=== PATIENT | male | born 1960 | race Caucasian/White ===

== ENCOUNTER 2022-11-09 14:46 | Inpatient (IN) ==
--- NOTE | 2022-11-09 15:14 | ED Triage Note ---
Date of Service November 09, 2022 History of Present Illness This patient was briefly evaluated while in triage. An abbreviated physical exam was performed. This patient is a 62-year-old Male who presents to the ED for evaluation of hard time walking. He was admitted 10 days ago to [facility] for ETOH. Discharge 5 days ago, and no ETOH since that time. He is on new meds for HTN and for the ETOH cravings. Reports bilateral leg pain and dark urine. Physical Exam Limited Triage Exam: VITALS: Vitals are noted on the nurse's note and reviewed by myself. Vital signs stable. GENERAL: Well-developed, well-nourished, white male, who is in NAD. Pt is seated in wheelchair. HEART: Regular rate and rhythm without murmurs gallops or rubs. LUNGS: Clear to auscultation bilaterally without wheezes, rales or rhonchi. No retractions or accessory muscle use. Initial orders for labs and / or imaging were placed and patient was placed in the waiting area until a bed is available. Please see further documentation for the full ED course. MDM / Impression Impression Impression: Wernicke-Korsakoff syndrome
[2022-11-09] MEDS ORDERED: SODIUM CHLORIDE 0.9% 1000ML 1,000 ML IV SCH (15:15)
[2022-11-09 16:16] LABS: Basophils # (auto) 0.09 K/uL (0-0.2); Basophils % (auto) 1.5 %; Eosinophils # (auto) 0.12 K/uL (0-0.50); Hematocrit (blood only) 43.1 % (42.0-52.0); Hemoglobin 14.8 g/dl (14.0-18.0); Immature Granulocytes # (auto) 0.04 K/uL (0.01-0.20); Immature Granulocytes % (auto) 0.7 %; Lymphocytes # (auto) 1.26 K/uL (1.2-3.4); Lymphocytes % (auto) 20.5 %; Mean Corpuscular Hemoglobin 34.1 pg (25.0-34.0); Mean Corpuscular Hgb Conc 34.3 g/dL (32.0-36.0); Mean Corpuscular Volume 99.3 fL (80.0-100.0); Mean Platelet Volume 10.2 fL (9.4-12.4); Monocytes # (auto) 0.97 K/uL (0.11-0.59); Monocytes % (auto) 15.8 %; Neutrophils # (auto) 3.67 K/uL (1.40-6.50); Neutrophils % (auto) 59.5 %; Platelet Count 291 K/uL (130-400); Red Blood Count 4.34 M/uL (4.70-6.10); White Blood Count 6.15 K/ul (4.8-10.8)
[2022-11-09 16:30] LABS: Alanine Aminotransferase 23 U/L (7-52); Albumin Globulin Ratio 1.3 (0.9-2); Albumin Level 3.8 gm/dl (3.4-5.0); Alkaline Phosphatase 55 U/L (34-104); Anion Gap 6 (3-11); Aspartate Aminotransferase 25 U/L (13-39); BUN Creatinine Ratio 15.2 (10-20); Bilirubin,Total 0.5 mg/dl (0.2-1.0); Blood Urea Nitrogen 15 mg/dl (6-23); Calcium 9.2 mg/dl (8.6-10.3); Carbon Dioxide 25 mmol/L (21-32); Chloride 106 mmol/L (98-107); Creatine Kinase 43 U/L (30-223); Est GFR (African American) 94.9 ml/min; Est GFR (Non-African American) 81.9 ml/min; Globulin 2.9 gm/dl (2.5-4.0); Glucose 97 mg/dl (70-99(Fasting)); Lipase 53 U/L (11-82); Potassium 3.7 mmol/L (3.5-5.1); Sodium 137 mmol/L (136-145); Total Protein 6.7 gm/dl (6.0-8.3)
[2022-11-09 16:36] LABS: Troponin I High Sensitivity 4.3 pg/ml (0-20)
--- NOTE | 2022-11-09 16:36 | CT Scan Report ---
CT head/brain wo con CLINICAL HISTORY: 62 years-old Male with weakness. Acute weakness TECHNIQUE: Multiple axial CT images of the head were obtained without contrast. A dose lowering tech nique was utilized adhering to the principles of ALARA. CT DOSE: 703.85 mGy.cm COMPARISON: None. FINDINGS: No acute intracranial hemorrhage, midline shift, intracranial mass, hydrocephalus, territorial ischem ia or abnormal extra-axial collection. White matter hypodensities suggestive of chronic microvascular ischemic disease. Ill-defined hypodense focus in the left paramedian joo is favored to be artifactu al. The calvarium is intact. The paranasal sinuses, mastoid air cells, and middle ear cavities are clear . IMPRESSION: No acute intracranial abnormality. ACT 112: Negative or not required by law. The above report was generated using voice recognition software. It may contain grammatical, syntax o r spelling errors. Electronically signed by: Kd Pink M.D. 11/09/2022 4:35 PM
[2022-11-09 16:40] LABS: Partial Thromboplastin Ratio 0.8; Partial Thromboplastin Time 23.4 Seconds (21.0-31.0); Prothrombin Time 10.8 Seconds (9.0-12.0)
[2022-11-09 16:49] LABS: Lyme Ab IgG w/WB Rflx Negative (Negative); Lyme Ab IgM w/WB Rflx Negative (Negative)
--- NOTE | 2022-11-09 17:01 | Emergency Department Note ---
Impression & Plan Wernicke-Korsakoff syndrome ED Provider Note INFORMANT: Patient and patient's ED PROVIDER(S): Vishal Em DO CHIEF COMPLAINT: Short-term memory loss and difficulty ambulating PLAN: Disposition: Admission Outpatient prescription management: [none] Discussion with: I spoke with the hospitalist, who will see the patient for admission/observation and further evaluation and consultation. MEDICAL DECISION MAKING: This patient is a 62-year-old Male who presents to the ED for evaluation of hard time walking. He was admitted 10 days ago to [facility] for ETOH. Discharge 5 days ago, and no ETOH since that time. He is on new meds for HTN and for the ETOH cravings. Reports bilateral leg pain. The pain is primarily in the anterior thighs. He states is not that bad right now but it is bad at times. He sometimes has difficulty walking due to the pain in his legs, primarily his anterior thighs. The reports that he sometimes seems c onfused and does not remember things very well and forgets things quickly. The patient, according to the was drinking at least a sixpack per day since his dad about a year ago. He was also using " moonshine". He was admitted to the [facility] for 5 days. The patient does take trazodone at night for sleep. The states that he is sleeping about 20 hours/day. He has decreased appetite and oral intake. The patient does answer my questions appropriately. The showed me a video of patient trying to get into a chair. He is hunched over with his legs partially bent and seems to have difficulty ambulating. Taking very small steps. One of the episodes that the reported to me with regards to his memory loss, he asked where his keys are to his car. When she got the keys and gave them to him, he asked her why he was giving him the keys. The patient's work-up here today did not show any concerning abnormalities. CT scan of the brain was negative for acute disease. EKG shows a normal sinus rhythm with a heart rate of 77 and right bundle branch block. CBC did not show leukocytosis or anemia. Chemistry panel showed no electrolyte abnormalities or kidney dysfunction. Alcohol was negative. Lyme test was negative. A total CK was normal. TSH was normal. Lipase was negative for pancreatitis. Ammonia level was normal. The patient was treated empirically with some IV thiamine, IV folic acid and p.o. multivitamin. He was given some IV fluids. His symptoms are concerning for Warnicke Korsakoff syndrome. He also seems to have significant difficulty getting around and may need inpatient rehab. I did speak with the hospitalist about the patient who will see the patient for further evaluation and care for Triage Nursing notes reviewed. Vital Signs: reviewed Prior /Outside records reviewed: none Differential diagnosis: Warnicke Korsakoff syndrome, dehydration, electrolyte abnormality, anemia, CVA, other Diagnostics, as interpreted by me: 12 lead ECG: Normal sinus rhythm rate of 77. Right bundle branch block. No ST elevation. No PVCs. Normal QTc. Cardiac Monitoring ordered: Sinus rhythm in the 70s and 80s Medical decision rules: [none] Imaging studies: CT scan of the brain: No intracranial hemorrhage. Procedures: none. Critical care: none. HPI: See MDM above. PAST MEDICAL HISTORY: See Below PAST SURGICAL HISTORY: See Below SOCIAL HISTORY: See Below HOME MEDICATIONS:See Below ALLERGIES: See Below VITALS: See Below PHYSICAL EXAMINATION: See MDM for positive findings otherwise unremarkable. CONSTITUTIONAL/VITAL SIGNS: Reviewed GENERAL:done as appropriate INTEGUMENTARY: done as appropriate HEAD: done as appropriate EYES: done as appropriate RESPIRATORY: done as appropriate CARDIOVASCULAR:done as appropriate GI/ABDOMEN:done as appropriate EXTREMITIES: done as appropriate NEUROLOGICAL: done as appropriate PSYCHIATRIC:done as appropriate MUSCULOSKELETAL:done as appropriate TRIAGE NURSING DOCUMENTATION REVIEWED. Past Med/Surg History Social History Smoking Status: Never smoker Feels Safe at Home: Yes Results & Data (ED) Vital Signs Vital Signs - 24 hr 11/09/22 15:10 11/09/22 16:50 Temperature 36.9 C Temperature Source Temporal Artery Scan Pulse Rate 90 Respiratory Rate 20 Respiratory Effort / Characteristics Non-Labored Respiratory Depth Normal Blood Pressure 109/71 Blood Pressure Mean 83 Pulse Oximetry 98 Oxygen Delivery Method Room Air Room Air Sepsis Recent Fever Within 48 Hours No Sepsis New/Unexplained Change in Mental Status Yes Sepsis Action Taken by Nursing No Action Required Laboratory Data 11/09/22 15:44 11/09/22 15:44 Lab Results 11/09/22 11/09/22 11/09/22 Range/Units 15:44 15:44 15:44 WBC 6.15 (4.8-10.8) K/ul RBC 4.34 L (4.70-6.10) M/uL Hgb 14.8 (14.0-18.0) g/dl Hct 43.1 (42.0-52.0) % MCV 99.3 (80.0-100.0) fL MCH 34.1 H (25.0-34.0) pg MCHC 34.3 (32.0-36.0) g/dL RDW Std Deviation 44.0 (36.4-46.3) fL RDW Coeff of Hollie 12.0 (11.5-14.5) % Plt Count 291 (130-400) K/uL MPV 10.2 (9.4-12.4) fL Immature Gran % (Auto) 0.7 % Neut % (Auto) 59.5 % Lymph % (Auto) 20.5 % [place] % (Auto) 15.8 % Eos % (Auto) 2.0 % Baso % (Auto) 1.5 % Neut # (Auto) 3.67 (1.40-6.50) K/uL Lymph # (Auto) 1.26 (1.2-3.4) K/uL [place] # (Auto) 0.97 H (0.11-0.59) K/uL Eos # (Auto) 0.12 (0-0.50) K/uL Baso # (Auto) 0.09 (0-0.2) K/uL Immature Gran # (Auto) 0.04 (0.01-0.20) K/uL PT 10.8 (9.0-12.0) Seconds INR 1.0 (0.9-1.1) APTT 23.4 (21.0-31.0) Seconds PTT Ratio 0.8 Sodium 137 (136-145) mmol/L Potassium 3.7 (3.5-5.1) mmol/L Chloride 106 (98-107) mmol/L Carbon Dioxide 25 (21-32) mmol/L Anion Gap 6 (3-11) BUN 15 (6-23) mg/dl Creatinine 0.99 (0.6-1.4) mg/dl Est Cr Clr Drug Dosing Not Reportable Est GFR ( Amer) 94.9 ml/min Est GFR (Non-Af Amer) 81.9 ml/min BUN/Creatinine Ratio 15.2 (10-20) Glucose 97 (70-99(Fasting)) mg/dl Calcium 9.2 (8.6-10.3) mg/dl Magnesium 2.0 (1.7-2.4) mg/dl Total Bilirubin 0.5 (0.2-1.0) mg/dl AST 25 (13-39) U/L ALT 23 (7-52) U/L Alkaline Phosphatase 55 (34-104) U/L Ammonia (18-72) umol/L Total Creatine Kinase 43 (30-223) U/L Troponin I High Sens 4.3 (0-20) pg/ml Total Protein 6.7 (6.0-8.3) gm/dl Albumin 3.8 (3.4-5.0) gm/dl Globulin 2.9 (2.5-4.0) gm/dl Albumin/Globulin Ratio 1.3 (0.9-2) Lipase 53 (11-82) U/L TSH (0.300-4.500) uIu/ml Ethyl Alcohol mg/dL (<10.0) mg/dl Lyme Disease IgG Ab (Negative) Lyme Disease IgM Ab (Negative) 11/09/22 11/09/22 11/09/22 Range/Units 15:44 15:44 15:44 WBC (4.8-10.8) K/ul RBC (4.70-6.10) M/uL Hgb (14.0-18.0) g/dl Hct (42.0-52.0) % MCV (80.0-100.0) fL MCH (25.0-34.0) pg MCHC (32.0-36.0) g/dL RDW Std Deviation (36.4-46.3) fL RDW Coeff of Hollie (11.5-14.5) % Plt Count (130-400) K/uL MPV (9.4-12.4) fL Immature Gran % (Auto) % Neut % (Auto) % Lymph % (Auto) % [place] % (Auto) % Eos % (Auto) % Baso % (Auto) % Neut # (Auto) (1.40-6.50) K/uL Lymph # (Auto) (1.2-3.4) K/uL [place] # (Auto) (0.11-0.59) K/uL Eos # (Auto) (0-0.50) K/uL Baso # (Auto) (0-0.2) K/uL Immature Gran # (Auto) (0.01-0.20) K/uL PT (9.0-12.0) Seconds INR (0.9-1.1) APTT (21.0-31.0) Seconds PTT Ratio Sodium (136-145) mmol/L Potassium (3.5-5.1) mmol/L Chloride (98-107) mmol/L Carbon Dioxide (21-32) mmol/L Anion Gap (3-11) BUN (6-23) mg/dl Creatinine (0.6-1.4) mg/dl Est Cr Clr Drug Dosing Est GFR ( Amer) ml/min Est GFR (Non-Af Amer) ml/min BUN/Creatinine Ratio (10-20) Glucose (70-99(Fasting)) mg/dl Calcium (8.6-10.3) mg/dl Magnesium (1.7-2.4) mg/dl Total Bilirubin (0.2-1.0) mg/dl AST (13-39) U/L ALT (7-52) U/L Alkaline Phosphatase (34-104) U/L Ammonia 31.0 (18-72) umol/L Total Creatine Kinase (30-223) U/L Troponin I High Sens (0-20) pg/ml Total Protein (6.0-8.3) gm/dl Albumin (3.4-5.0) gm/dl Globulin (2.5-4.0) gm/dl Albumin/Globulin Ratio (0.9-2) Lipase (11-82) U/L TSH 0.746 (0.300-4.500) uIu/ml Ethyl Alcohol mg/dL < 10.0 (<10.0) mg/dl Lyme Disease IgG Ab (Negative) Lyme Disease IgM Ab (Negative) 11/09/22 Range/Units 15:44 WBC (4.8-10.8) K/ul RBC (4.70-6.10) M/uL Hgb (14.0-18.0) g/dl Hct (42.0-52.0) % MCV (80.0-100.0) fL MCH (25.0-34.0) pg MCHC (32.0-36.0) g/dL RDW Std Deviation (36.4-46.3) fL RDW Coeff of Hollie (11.5-14.5) % Plt Count (130-400) K/uL MPV (9.4-12.4) fL Immature Gran % (Auto) % Neut % (Auto) % Lymph % (Auto) % [place] % (Auto) % Eos % (Auto) % Baso % (Auto) % Neut # (Auto) (1.40-6.50) K/uL Lymph # (Auto) (1.2-3.4) K/uL [place] # (Auto) (0.11-0.59) K/uL Eos # (Auto) (0-0.50) K/uL Baso # (Auto) (0-0.2) K/uL Immature Gran # (Auto) (0.01-0.20) K/uL PT (9.0-12.0) Seconds INR (0.9-1.1) APTT (21.0-31.0) Seconds PTT Ratio Sodium (136-145) mmol/L Potassium (3.5-5.1) mmol/L Chloride (98-107) mmol/L Carbon Dioxide (21-32) mmol/L Anion Gap (3-11) BUN (6-23) mg/dl Creatinine (0.6-1.4) mg/dl Est Cr Clr Drug Dosing Est GFR ( Amer) ml/min Est GFR (Non-Af Amer) ml/min BUN/Creatinine Ratio (10-20) Glucose (70-99(Fasting)) mg/dl Calcium (8.6-10.3) mg/dl Magnesium (1.7-2.4) mg/dl Total Bilirubin (0.2-1.0) mg/dl AST (13-39) U/L ALT (7-52) U/L Alkaline Phosphatase (34-104) U/L Ammonia (18-72) umol/L Total Creatine Kinase (30-223) U/L Troponin I High Sens (0-20) pg/ml Total Protein (6.0-8.3) gm/dl Albumin (3.4-5.0) gm/dl Globulin (2.5-4.0) gm/dl Albumin/Globulin Ratio (0.9-2) Lipase (11-82) U/L TSH (0.300-4.500) uIu/ml Ethyl Alcohol mg/dL (<10.0) mg/dl Lyme Disease IgG Ab Negative (Negative) Lyme Disease IgM Ab Negative (Negative) Imaging Data Radiologist's Impression: Head CT 11/09/22 15:14 CT head/brain wo con CLINICAL HISTORY: 62 years-old Male with weakness. Acute weakness TECHNIQUE: Multiple axial CT images of the head were obtained without contrast. A dose lowering technique was utilized adhering to the principles of ALARA. CT DOSE: 703.85 mGy.cm COMPARISON: None. FINDINGS: No acute intracranial hemorrhage, midline shift, intracranial mass, hydrocephalus, territorial ischemia or abnormal extra-axial collection. White matter hypodensities suggestive of chronic microvascular ischemic disease. Ill- defined hypodense focus in the left paramedian joo is favored to be artifactual. The calvarium is intact. The paranasal sinuses, mastoid air cells, and middle ear cavities are clear. IMPRESSION: No acute intracranial abnormality. ACT 112: Negative or not required by law. The above report was generated using voice recognition software. It may contain grammatical, syntax or spelling errors. Electronically signed by: Kd Pink M.D. 11/09/2022 4:35 PM Discharge Plan Visit Data Chief Complaint: Leg Injury/Pain Stated Complaint: GETTING LEGS CHECKED OUT ED Provider: Vishal Em Discharge Problem: Wernicke-Korsakoff syndrome Patient Disposition: Admitted As Inpatient Forms Stand Alone Forms: [facility] Referrals Referrals: PCP,NO [Primary Care Provider] -
--- NOTE | 2022-11-09 17:13 | Electrocardiogram Report ---
Test Reason : Blood Pressure : / mmHG Vent. Rate : 077 BPM Atrial Rate : 077 BPM P-R Int : 160 ms QRS Dur : 122 ms QT Int : 410 ms P-R-T Axes : 024 061 004 degrees QTc Int : 463 ms Normal sinus rhythm Right bundle branch block Abnormal ECG No previous ECGs available Confirmed by Toby Calhoun ([id number]) on 11/09/2022 5:13:02 PM Referred By: Confirmed By:Jaison Calhoun
[2022-11-09] MEDS ORDERED: FOLIC ACID 1 MG in SYRINGE 9.8 ML IV STA (17:31)
[2022-11-09] MEDS ORDERED: THIAMINE HCL 500 MG in SYRINGE 9 ML IV STA (17:31)
[2022-11-09] MEDS ORDERED: THIAMINE HCL 500 MG in SODIUM CHLORIDE 0.9% 50 ML IV ONE (17:45)
--- NOTE | 2022-11-09 18:34 | Ultrasound Report ---
US venous doppler LE BI CLINICAL HISTORY: weak, leg pain, recent hospitalization TECHNIQUE: Bilateral lower extremity real-time compression venous ultrasound with Color Doppler imagi ng. Utilizing real-time ultrasonic imaging multiple real time high-resolution ultrasonic images with compression and noncompression maneuvers of the deep venous system in addition to color doppler imagi ng were performed from the common femoral vein through the proximal calf veins. COMPARISON: None available at the time of this dictation. FINDINGS/IMPRESSION: Currently there is normal compressibility of the deep venous system from the common femoral vein thro ugh the proximal calf veins. No superficial venous thrombosis is identified. ACT 112: Negative or not required by law. Electronically signed by: Bandar Armstrong M.D. 11/09/2022 6:33 PM
--- NOTE | 2022-11-09 18:40 | History & Physical Report ---
Date of Service November 09, 2022 Assessment & Plan (1) Ataxia: (2) Alcohol use disorder in remission: (3) Seizure disorder: (4) Anxiety and depression: (5) HTN (hypertension): Plan This is a 62-year-old male with PMH of hypertension, remote seizure disorder, significant history of alcohol abuse, anxiety and depression, GERD and other medical problems listed below who presents with acute ambulatory dysfunction and impaired cognition concerning for vitamin deficiency and related syndromes including Wernicke's encephalopathy. Ataxia Impaired cognition H/o alcohol abuse Recent admission to [facility] 10/30-11/03 for etoh withdrawal, notable ambulatory dysfunct ion and slowed cognition since discharge home Discharged home on Librium taper and naltrexone Last drink 10/29, today's etoh level normal. No s/sx of etoh withdrawal on admission today, so we will hold Librium and Naltrexone at this time as it may be contributing to slowed cognition Head CT without acute intracranial abnormality Concern for significant vitamin deficiency in setting of minimal appetite, h/o alcoholism and Topamax use Thiamine, B12, folate, MMA levels pending Received IV folate, thiamine and B12 in the ED Continue Thiamine 500mg Q8H for concern for Wernicke's encephalopathy Continue B12, folate daily Brain MRI w/wo contrast pending, carotid dopplers Neurology consulted Seizure disorder Remote h/o seizure 16 years ago. Continue Topamax Anxiety and depression H/o grief from recent losses over past year, evaluated by psych at [facility] with recommendation for continued outpatient therapy. Continue SSRI Reduce Trazodone to 50mg HS HTN Continue amlodipine DVT Ppx: SQ lovenox Code status: FULL PCP: Bhupendra Dispo: Admitted to PCU Patient seen in collaboration with Dr. Whitten. Please see addendum. I spent a total of 75 minutes coordinating, documenting, and providing care for this patient excluding time spent in the performance of separately billed services. History of Present Illness Chief Complaint: Acute memory change history of alcohol abuse Primary Care Provider: NO PCP This is a 62-year-old male with PMH of hypertension, remote seizure disorder, significant history of alcohol abuse, anxiety and depression, GERD and other medical problems listed below who presents with acute memory changes and ambulatory dysfunction. Patient was recently admitted at [facility] from 10/30 - 11/03 for alcohol detox brought in by his . Also underwent stroke evaluation which was negative due to weakness during admission. Patient was discharged on Librium taper and naltrexone 50 mg daily as recommended from psychiatry consult during admission for depression related to alcohol use. Last drink was October 29. Previously to that drank 5-6 beers/night for years. Since discharge home, patient has been sleeping more, up to 20 hours a day and has seem increasingly more confused and unsteady. provided videos of patient walking 6 days ago with slight shuffling but steady and then showed video from barron mclain today of him scooting on the floor due to weakness and inability to fully stand as well as a slowed, unsteady gait, holding onto furniture. Examples of discoordination and confusion provided by include having difficulty operating TV remote and had it upside down and searching for his wallet and did not know it was in the other hand. Reportedly always has been a poor eater and recently started him on Gatorade and Ensure but has been on Topamax 75mg BID for years due to history of seizure 16 years ago. Urinating less frequently and reportedly dark, foul smelling. 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 Reportedly A&Ox3 without any cognitive slowing previously. Last drink was October 29. No fever, chills, lightheadedness, CP, SOB, N/V, abdominal pain, dysuria, diarrhea or constipation. Allergies Allergy/AdvReac Type Severity Reaction Status Date / Time bee venom protein (honey bee) Allergy Severe Anaphylaxis--CARRIES Verified 11/09/22 18:26 AN EPIPEN Home Medications Medication Instructions Recorded Confirmed Type amlodipine 10 mg tablet 10 mg PO QAM 11/09/22 11/09/22 History atorvastatin 20 mg tablet 20 mg PO HS 11/09/22 11/09/22 History chlordiazepoxide HCl 25 mg capsule 25 mg PO TID 11/09/22 11/09/22 History epinephrine 0.3 mg/0.3 mL 0.3 mg IM DIRECTED PRN Allergic 11/09/22 11/09/22 History injection, auto-injector (EpiPen) Reaction escitalopram oxalate 20 mg tablet 20 mg PO QAM 11/09/22 11/09/22 History multivitamin 1 tab PO DAILY 11/09/22 11/09/22 History naltrexone 50 mg tablet 50 mg PO QAM 11/09/22 11/09/22 History omeprazole 20 mg capsule,delayed 20 mg PO DAILYBB 11/09/22 11/09/22 History release tamsulosin 0.4 mg capsule 0.4 mg PO QAM 11/09/22 11/09/22 History topiramate 25 mg tablet 25 mg PO BID 11/09/22 11/09/22 History topiramate 50 mg tablet 50 mg PO BID 11/09/22 11/09/22 History trazodone 100 mg tablet 100 mg PO HS 11/09/22 11/09/22 History Past Med/Surg History Medical History Alcohol use disorder in remission Anxiety and depression GERD (gastroesophageal reflux disease) HTN (hypertension) Seizure disorder Surgical History History of appendectomy Family History Other Lung cancer Social History Smoking Status: Never smoker Hx Alcohol Use: Yes Alcohol type: beer Alcohol type Comment: last drink 5/4, previously endorsed 5-6 beers per night Feels Safe at Home: Yes Review of Systems Review of Systems: At least ten systems reviewed and negative except as noted in the HPI. Physical Exam Physical Exam: Please see Dr. Whitten's addendum for physical exam. Results & Data Results & Data Vital Signs (Past 12 Hours) Vital Signs Temp Pulse Pulse Resp BP BP Pulse Ox 11/09/22 18:19 62 20 139/77 96 11/09/22 16:50 11/09/22 15:10 36.9 C 90 20 109/71 98 O2 Del Method 11/09/22 18:19 Room Air 11/09/22 16:50 Room Air 11/09/22 15:10 Room Air Laboratory Results Short CBC 11/09/22 Range/Units 15:44 WBC 6.15 (4.8-10.8) K/ul Hgb 14.8 (14.0-18.0) g/dl Hct 43.1 (42.0-52.0) % Plt Count 291 (130-400) K/uL BMP 11/09/22 15:44 Sodium 137 Potassium 3.7 Chloride 106 Carbon Dioxide 25 BUN 15 Creatinine 0.99 Glucose 97 Calcium 9.2 Cardiac Enzymes 11/09/22 Range/Units 15:44 Total Creatine Kinase 43 (30-223) U/L Liver Function 11/09/22 Range/Units 15:44 Total Bilirubin 0.5 (0.2-1.0) mg/dl AST 25 (13-39) U/L ALT 23 (7-52) U/L Alkaline Phosphatase 55 (34-104) U/L Albumin 3.8 (3.4-5.0) gm/dl Diagnostic Findings Head CT 11/09/22 15:14 CT head/brain wo con CLINICAL HISTORY: 62 years-old Male with weakness. Acute weakness TECHNIQUE: Multiple axial CT images of the head were obtained without contrast. A dose lowering technique was utilized adhering to the principles of ALARA. CT DOSE: 703.85 mGy.cm COMPARISON: None. FINDINGS: No acute intracranial hemorrhage, midline shift, intracranial mass, hydrocephalus, territorial ischemia or abnormal extra-axial collection. White matter hypodensities suggestive of chronic microvascular ischemic disease. Ill- defined hypodense focus in the left paramedian joo is favored to be artifactual. The calvarium is intact. The paranasal sinuses, mastoid air cells, and middle ear cavities are clear. IMPRESSION: No acute intracranial abnormality. ACT 112: Negative or not required by law. The above report was generated using voice recognition software. It may contain grammatical, syntax or spelling errors. Electronically signed by: Kd Pink M.D. 11/09/2022 4:35 PM Venous Doppler Study 11/09/22 15:14 US venous doppler LE BI CLINICAL HISTORY: weak, leg pain, recent hospitalization TECHNIQUE: Bilateral lower extremity real-time compression venous ultrasound with Color Doppler imaging. Utilizing real-time ultrasonic imaging multiple real time high-resolution ultrasonic images with compression and noncompression maneuvers of the deep venous system in addition to color doppler imaging were performed from the common femoral vein through the proximal calf veins. COMPARISON: None available at the time of this dictation. FINDINGS/IMPRESSION: Currently there is normal compressibility of the deep venous system from the common femoral vein through the proximal calf veins. No superficial venous thrombosis is identified. ACT 112: Negative or not required by law. Electronically signed by: Bandar Armstrong M.D. 11/09/2022 6:33 PM ECG Additional Comments: EKG reviewed- NSR at 71 bpm, RBBB Code Status & VTE Plan VTE Prophylaxis Plan VTE Prophylaxis will be ordered: Yes Supervising Physician Co-Signing Physician Notes I have seen and examined the patient and have discussed the case with the provider above. I agree with the assessment and plan as stated with the following exceptions. 62-year-old alcoholic man presented with worsening weakness and ambulation. Intermittent confusion present per . Patient was recently admitted to [facility] for alcohol withdrawal. He had presented to the ER with sudden onset tremors and diaphoresis with hypertension and last drink being 2 days prior to arrival. 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 Since he was discharged in the hospital he has not regained his normal brisk gait and has become steadily more stooped and weak and more confused. Baseline mental status is normal 2 weeks ago. Aside from drinking a sixpack a day his nutritional status is poor per family. In addition he is on Topamax 75 mg p.o. twice daily for a history of seizures 16 years ago. He also takes trazodone 100 mg p.o. nightly in the evening. He has reportedly been dealing with depression and is on Lexapro 20 mg every morning. Since discharge from the hospital new medications include naltrexone 50 mg daily and chlordiazepoxide 25 mg twice daily. Physical exam he is alert and oriented but slow to respond. He exhibits no signs of withdrawal including no tremors or anxiousness. Tongue has a geographic appearance to it with patches of white and smooth red with possible glossitis. No evidence of dermatitis or angular cheilitis is noted. His skin is warm and dry with no evidence of diaphoresis. Extraocular muscles intact throughout with no evidence of nystagmus. Sensation is intact throughout and strength is 5 out of 5 throughout all limbs. I can easily take his arms and legs through a passive range of motion without any evidence of rigidity or obstacle. DTRs in the knees bilaterally are 3/4. Sensation intact. [id number] is intact. He answers questions correctly. Cardiac exam reveals S1-S2 heard with no murmurs gallops or rubs. There is a regular rate and rhythm auscultated. Pulmonary auscultation is clear throughout. Abdomen is soft nontender nondistended. Work-up includes a CBC that is normal with an MCV of 99.3. BMP is normal. Lipase is normal, TSH normal, alcohol level is negative, Lyme screen is negative, COVID is negative. Urinalysis and urine tox are pending. Head CT reveals no acute intracranial abnormality. EKG reveals normal sinus rhythm with a right bundle branch block and no ST changes consistent with ischemia. MRI is pending 1. Ataxia 2/2 poss vitamin deficiency (B12) 2. Alcoholism 3. Malnutrition 4. Depression 5. Seizure d/o Overall this is a 62 yo alcoholic presenting with acute neurologic changes consistent with vitamin deficiency, specifically B12 or thiamine. Exam does not support ongoing alcohol withdrawal and additional benzo use to treat this will be stopped as this may be adding to the decline. Similarly, will hold on naltrexone since he is in the hospital and will be abstinent from alcohol to exclude any pharmacologic side effect from this new medication. Will decrease trazodone by 50% and cont Lexapro and Topamax for h/o seizure. His showed videos and gave examples of the patient demonstrating lack of proprioception. Will empirically replace both and folate while awaiting levels to return. MRI pending to rule out bleed or tumor. Doubt infection, but also awaiting UA results. Consider additional intoxication such as accidental poisoning or other occupational exposure. For now, will start with tox screen which is pending. Neuro consult. DO Fish
[2022-11-09] MEDS ORDERED: CYANOCOBALAMIN 1000 MCG/ML VIAL IM SCH (19:45)
--- NOTE | 2022-11-09 19:56 | Communication Note ---
Date of Service: November 09, 2022 HOSPITALIST ATTENDING ADDENDUM: 62-year-old alcoholic man presented with worsening weakness and ambulation. Intermittent confusion present per . Patient was recently admitted to [facility] for alcohol withdrawal. He had presented to the ER with sudden onset tremors and diaphoresis with hypertension and last drink being 2 days prior to arrival. His last drink was reportedly 10/29/2022 and he typically drinks a sixpack a day fdc. Since he was discharged in the hospital he has not regained his normal brisk gait and has become steadily more stooped and weak and more confused. Baseline mental status is normal 2 weeks ago. Aside from drinking a sixpack a day his nutritional status is poor per family. In addition he is on Topamax 75 mg p.o. twice daily for a history of seizures 16 years ago. He also takes trazodone 100 mg p.o. nightly in the evening. He has reportedly been dealing with depression and is on Lexapro 20 mg every morning. Since discharge from the hospital new medications include naltrexone 50 mg daily and chlordiazepoxide 25 mg twice daily. Physical exam he is alert and oriented but slow to respond. He exhibits no signs of withdrawal including no tremors or anxiousness. Tongue has a geographic appearance to it with patches of white and smooth red with possible glossitis. No evidence of dermatitis or angular cheilitis is noted. His skin is warm and dry with no evidence of diaphoresis. Extraocular muscles intact throughout with no evidence of nystagmus. Sensation is intact throughout and strength is 5 out of 5 throughout all limbs. I can easily take his arms and legs through a passive range of motion without any evidence of rigidity or obstacle. DTRs in the knees bilaterally are 3/4. Sensation intact. [id number] is intact. He answers questions correctly. Cardiac exam reveals S1-S2 heard with no murmurs gallops or rubs. There is a regular rate and rhythm auscultated. Pulmonary auscultation is clear throughout. Abdomen is soft nontender nondistended. Work-up includes a CBC that is normal with an MCV of 99.3. BMP is normal. Lipase is normal, TSH normal, alcohol level is negative, Lyme screen is negative, COVID is negative. Urinalysis and urine tox are pending. Head CT reveals no acute intracranial abnormality. EKG reveals normal sinus rhythm with a right bundle branch block and no ST changes consistent with ischemia. MRI is pending 1. Ataxia 2/2 poss vitamin deficiency (B12) 2. Alcoholism 3. Malnutrition 4. Depression 5. Seizure d/o Overall this is a 62 yo alcoholic presenting with acute neurologic changes consistent with vitamin deficiency, specifically B12 or thiamine. Exam does not support ongoing alcohol withdrawal and additional benzo use to treat this will be stopped as this may be adding to the decline. Similarly, will hold on naltrexone since he is in the hospital and will be abstinent from alcohol to exclude any pharmacologic side effect from this new medication. Will decrease trazodone by 50% and cont Lexapro and Topamax for h/o seizure. His showed videos and gave examples of the patient demonstrating lack of proprioception. Will empirically replace both and folate while awaiting levels to return. MRI pending to rule out bleed or tumor. Doubt infection, but also awaiting UA results. Consider additional intoxication such as accidental poisoning or other occupational exposure. For now, will start with tox screen which is pending. Neuro consult. DO Fish
[2022-11-09] MEDS ORDERED: GADOBUTROL 65ML VIAL IV ONE (21:26)
--- NOTE | 2022-11-09 21:58 | Magnetic Resonance Report ---
Exam(s): MRI HEAD W/WO Contrast IV Amt: 8.3 cc gadavist EXAM: MR Head Without and With Intravenous Contrast CLINICAL HISTORY: Reason for exam: acute ataxia, confusion, h/o alcoholism. TECHNIQUE: Magnetic resonance images of the head/brain without and with intravenous contrast in multiple planes. CONTRAST: Patient received 8.3 cc gadavist of IV contrast COMPARISON: No relevant prior studies available. FINDINGS: No acute territorial infarct. No acute intracranial hemorrhage. No midline shift or mass effect. The territorial sheldon-white matter differentiation is maintained throughout. Cerebral volume loss, advanced for the patient's age, which may be secondary to the patient's history of alcoholism. Periventricular and subcortical white matter T2 signal intensity, consistent with chronic microangiopathy. The visualized orbits appear grossly unremarkable. The calvarium is intact. The visualized paranasal sinuses and mastoid air cells are grossly clear. IMPRESSION: No acute territorial infarct. No acute intracranial hemorrhage. No midline shift or mass effect. Cerebral volume loss, advanced for the patient's age, which may be secondary to the patient's history of alcoholism. Electronically signed by: Ian Lucas MD 11/09/22 21:57 PM
[2022-11-09] MEDS ORDERED: ONDANSETRON INJ 2 MG/ML 2 ML VIAL IV PRN (21:59)
[2022-11-09] MEDS ORDERED: POLYETHYLENE (MIRALAX) 17 GM PACK PO PRN (21:59)
[2022-11-09] MEDS ORDERED: ACETAMINOPHEN 325 MG TAB PO PRN (21:59)
[2022-11-09] MEDS: Patient's HEIGHT &/or WEIGHT Needed SCH ×2 (22:27→23:45)
--- NOTE | 2022-11-09 23:42 | Ultrasound Report ---
Exam(s): US CAROTID EXAM: US Duplex Bilateral Extracranial Arteries CLINICAL HISTORY: Reason for exam: confusion. TECHNIQUE: Real-time duplex ultrasound scan of the extracranial arteries integrating B-mode two-dimensional vascular structure, Doppler spectral analysis and color flow Doppler imaging. COMPARISON: None. FINDINGS: Right common carotid artery: Unremarkable. No occlusion or significant stenosis on color flow and spectral Doppler imaging. Right internal carotid artery: Unremarkable. No occlusion or significant stenosis on color flow and spectral Doppler imaging. Right external carotid artery: Unremarkable. No occlusion or significant stenosis on color flow and spectral Doppler imaging. Right vertebral artery: Unremarkable. Antegrade flow. Right ICA/CCA ratio: Unremarkable. Within normal limits. Left common carotid artery: Unremarkable. No occlusion or significant stenosis on color flow and spectral Doppler imaging. Left internal carotid artery: Unremarkable. No occlusion or significant stenosis on color flow and spectral Doppler imaging. Left external carotid artery: Unremarkable. No occlusion or significant stenosis on color flow and spectral Doppler imaging. Left vertebral artery: Unremarkable. Antegrade flow. Left ICA/CCA ratio: Unremarkable. Within normal limits. Lymph nodes: Unremarkable. No lymphadenopathy. CAROTID STENOSIS REFERENCE USING SRU CRITERIA: Mild - <50% stenosis. ICA PSV is less than 125 cm/second and plaque or intimal thickening is visible. Moderate - 50-69% stenosis. ICA PSV is 125 to 230 cm/second and plaque is visible. Severe - 70-94% stenosis. ICA PSV is more than 230 cm/second and visible plaque with lumen narrowing is seen. Near occlusion - 95-99% stenosis. ICA PSV is variable and significant plaque with luminal narrowing is seen. Occluded - 100% stenosis. No flow identified. IMPRESSION: No hemodynamically significant stenosis of the carotid arteries. Electronically signed by: Simon Hankins MD 11/09/22 23:40 PM
[2022-11-09] MEDS: TOPIRAMATE 25 MG TAB PO SCH (23:48)
[2022-11-09] MEDS: TOPIRAMATE 50 MG TAB PO SCH (23:48)
[2022-11-09] MEDS: ENOXAPARIN INJ 40 MG/0.4 ML SYR SQ SCH (23:48)
[2022-11-09] MEDS: traZODone HCL 50 MG TAB PO SCH (23:49)
[2022-11-09] MEDS: MULTIVITAMIN TAB PO SCH (23:49)
[2022-11-09] MEDS: ATORVASTATIN 20 MG TAB PO SCH (23:49)
[2022-11-10] MEDS: THIAMINE HCL 500 MG in SODIUM CHLORIDE 0.9% 50 ML IV SCH ×3 (02:52→20:03)
[2022-11-10] MEDS: PANTOprazole 40 MG TAB PO SCH (05:33)
[2022-11-10 06:04] LABS: Hematocrit (blood only) 39.2 % (42.0-52.0); Hemoglobin 13.4 g/dl (14.0-18.0); Mean Corpuscular Hemoglobin 34.5 pg (25.0-34.0); Mean Corpuscular Hgb Conc 34.2 g/dL (32.0-36.0); Mean Platelet Volume 9.8 fL (9.4-12.4); Platelet Count 274 K/uL (130-400); RDW Standard Deviation 45.1 fL (36.4-46.3); Red Blood Count 3.88 M/uL (4.70-6.10); White Blood Count 5.23 K/ul (4.8-10.8)
[2022-11-10 06:14] LABS: BUN Creatinine Ratio 14.9 (10-20); Calcium 8.5 mg/dl (8.6-10.3); Creatinine Clr Calc Pharmacy 86.3 ml/min; Est GFR (Non-African American) 93.2 ml/min; Potassium 3.4 mmol/L (3.5-5.1)
[2022-11-10 06:35] LABS: Appearance Urine Clear (Clear); Bacteria Urine Automated Negative (Negative); Blood Urine Negative (Negative); Color Urine Dark Yellow; Glucose Urine UA Negative (Negative); Ketones Urine 1+ (Negative); Leukocyte Esterase Urine Negative (Negative); Nitrite Urine Negative (Negative); Protein Urine Trace (Negative); RBC Urine Automated 0-4 /hpf (0-4); Specific Gravity Urine 1.035 (1.000-1.030); Urobilinogen Urine Negative (Negative)
[2022-11-10 06:49] LABS: Bilirubin Urine 1+ (Negative)
[2022-11-10 07:28] LABS: Amphetamines+Metham, Urine Neg (Neg); Barbiturates, Urine Neg (Neg); Benzodiazepine, Urine Pos (Neg); Cocaine, Urine Neg (Neg); MDMA (Ecstacy), Urine Pos (Neg); Methadone, Urine Neg (Neg); Opiate, Urine Neg (Neg); Phencyclidine, Urine Neg (Neg)
[2022-11-10] MEDS: TAMSULOSIN HCL 0.4 MG CAP PO SCH (08:20)
[2022-11-10] MEDS: TOPIRAMATE 25 MG TAB PO SCH ×2 (08:20→20:05)
[2022-11-10] MEDS: FOLIC ACID 1 MG in SYRINGE 9.8 ML IV SCH (08:20)
[2022-11-10] MEDS: ESCITALOPRAM OXALATE 20 MG TAB PO SCH (08:20)
[2022-11-10] MEDS: amLODIPine BESYLATE 5 MG TAB PO SCH (08:21)
[2022-11-10] MEDS: TOPIRAMATE 50 MG TAB PO SCH ×2 (08:21→20:06)
--- NOTE | 2022-11-10 08:34 | Neurology Consultation ---
Date of Consultation November 10, 2022 Assessment & Plan (1) Alcohol use disorder in remission: (2) Wernicke-Korsakoff syndrome: (3) Ambulatory dysfunction: (4) Anxiety and depression: (5) Seizure disorder: Plan This patient has a history of heavy alcohol use for many years although he was markedly increased over the last 12 months. He was recently admitted and treated for alcohol and withdrawal. he was discharged on naltrexone and tapering Librium. Currently on examination he has Parkinson's features with rigidity, bradykinesia, and abnormal gait. He does not have resting tremor. He does have mild action tremor bilaterally and he does not have any ataxia of limbs or gait. Despite his feelings of weakness he does not have any focal weakness in his limbs and there are no upper motor neuron signs, meningeal signs, or obvious encephalopathy. He is slow of thought and seems to have some periods of confusion or memory issues by history. MRI of the brain showed no acute stroke but did show generalized atrophy that seemed out of proportion for his relatively young age. There was mild old small vessel ischemic disease as well and he does have a history of hypertension and dyslipidemia. Naltrexone can cause increased fatigue and hypersomnolence with anxiety, a rthralgias, and increased depression. It does not cause parkinsonism as far as I am aware. Patient has significant anxiety and depression and he may be experiencing depression was severe psychomotor symptoms. He has a remote history of 2 seizures 1 night and has been on topiramate ever since. Topiramate can be associated with decrease cognitive function the his dose is relatively low. Overall, therefore, I believe most of what we see is due to chronic alcohol issues affecting the brain as well as probable early Wernicke-Korsakoff syndrome from B vitamin deficiency, depression, and medication side effect. Recommendations: 1. ZERO alcohol from here on. 2. Agree with discontinuing now tracks own. 3. Agree with cutting trazodone to 50 mg a day. 4. Consider 81 mg aspirin daily to prevent small vessel ischemic disease. 5. decrease topiramate 50 mg twice a day. This should be adequate for mild seizure control 6. Continue the vitamins 7. Increase activity and obtain physical, occupational, and speech therapy consult. 8. I will following consider other neurologic testing or treatment recommendations depending on his clinical course. Overall, I spent a total of 100 minutes with this case including review of records, review of MRI and CT films, direct evaluation the patient at bedside, reports generation, and discussion the case with the patient, RN, and as well as Dr. Varghese, including differential diagnosis and treatment options. History of Present Illness Reason for Consultation: Patient is a 62-year-old, who I was asked to see the request of Dr. Whitten, neurologic consultation regarding confusion and other issues. patient's as much to the history (I spoke to her via telephone). Requesting Physician: Dr. Whitten Attending Physician: Chepe Varghese MD History of Present Illness This patient has a history of chronic, frequent alcohol use for years although it has been worse over the last year (increased frequency and quanity) after the of his father. In addition, He had two seizures 1 night about 16 years ago. He tells me that no one found any cause for his seizures and he has been on topiramate ever sinc e. He was told he could go off of it but he was too afraid to go off in case he might have another seizure. He never had seizures before or since 1 evening. Apparently he was walking quite well with no slowness or stiffness. He ended up going to [facility] about 10 days ago or so because of alcohol abuse. He was discharged about 5 days ago on tapering course of lithium and naltrexon e. According to the patient (and verified by his ) he has been very sleepy since he left the hospital. He says his walking is very slow and shuffling and he feels weak in the legs. He has had chronic knee pain for many years however. The patient himself denies any pain in the legs but they are weak proximally and similar. There is no numbness in the legs. Occasionally he will have urgency and some incontinence but this is not all the time. He denies symptoms in his low back, cervical spine, or upper extremities. He has no headaches or vision problems. Because of leg weakness and inability to ambulate as well as some confusion and forgetfulness he was brought to the emergency room on November 09. He arrived November 09 at 3:10 p.m. with a temperature 36.0, pulse 90, respiratory 20, blood pressure 171, and O2 saturation 98%. His neurologic examination was largely unremarkable. CBC and Chem profile were unremarkable. TSH was normal and Lyme antibody titers were negative. CK was 43 and he had 0 alcohol level ( last drink October 29, 2022). CT scan of the head was unremarkable. Carotid ultrasound was unremarkable. MRI of the brain showed mild generalized atrophy out of proportion to age each with some mild old small vessel ischemic disease. There were no acute changes. This morning the patient feels better with no pain although his legs are still weak. He seems stiff and slow. He denies depression. Does not feel his memory is that bad. Allergies Allergy/AdvReac Type Severity Reaction Status Date / Time bee venom protein (honey bee) Allergy Severe Anaphylaxis--CARRIES Verified 11/09/22 18:26 AN EPIPEN Home Medications Medication Instructions Recorded Confirmed Type amlodipine 10 mg tablet 10 mg PO QAM 11/09/22 11/09/22 History atorvastatin 20 mg tablet 20 mg PO HS 11/09/22 11/09/22 History chlordiazepoxide HCl 25 mg capsule 25 mg PO TID 11/09/22 11/09/22 History epinephrine 0.3 mg/0.3 mL 0.3 mg IM DIRECTED PRN Allergic 11/09/22 11/09/22 History injection, auto-injector (EpiPen) Reaction escitalopram oxalate 20 mg tablet 20 mg PO QAM 11/09/22 11/09/22 History multivitamin 1 tab PO DAILY 11/09/22 11/09/22 History naltrexone 50 mg tablet 50 mg PO QAM 11/09/22 11/09/22 History omeprazole 20 mg capsule,delayed 20 mg PO DAILYBB 11/09/22 11/09/22 History release tamsulosin 0.4 mg capsule 0.4 mg PO QA 11/09/22 11/09/22 History topiramate 25 mg tablet 25 mg PO BID 11/09/22 11/09/22 History topiramate 50 mg tablet 50 mg PO BID 11/09/22 11/09/22 History trazodone 100 mg tablet 100 mg PO HS 11/09/22 11/09/22 History Patient History Medical History Alcohol use disorder in remission Anxiety and depression GERD (gastroesophageal reflux disease) HTN (hypertension) Seizure disorder Surgical History History of appendectomy Family History Father , age 84 of cancer (uncertain type) Cancer Mother Osteoporosis Other Lung cancer Social History Smoking Status: Never smoker Hx Alcohol Use: Yes Alcohol type: beer and hard liquor Alcohol type Comment: last drink 5/4, previously endorsed 5-6 beers per night Hx Substance Use: No Preferred Language: Sami Anime Artist Required: No Beliefs That Will Affect Care: None Current Living Situation: Spouse current occupational status: employed 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 [employer] Feels Safe at Home: Yes Review of Systems Constitutional: + fatigue, + weakness and + daytime sleepiness; no fever Eyes: no diplopia, no eye pain and no worsening vision Ear, Nose, Mouth, Throat: no ear pain, no tinnitus, no hearing loss, no dizziness, no snoring, no hoarseness and no dysphagia Respiratory: no cough and no dyspnea Cardiovascular: no chest pain, no palpitations and no lightheadedness Gastrointestinal: no abdominal pain, no nausea and no vomiting Musculoskeletal: + joint pain; no back pain, no neck pain, no radicular pain and no myalgia Integumentary: no rash and no lesions Neurologic: + gait abnormality, + localized weakness, + tremor(s), + confusion and + memory loss; no generalized weakness, no tingling, no numbness, no abnormal movements, no headache(s) and no abnormal speech Psychiatric: + depression and + anxiety; no irritability, no difficulty concentrating, no confusion and no hallucinations Endocrine: no fatigue and no flushing Hematologic / Lymphatic: no easy bleeding and no easy bruising Allergy / Immunological: no urticaria and no problem reported Exam (Neuro) Physical Exam: The patient is right-handed. The patient is awake, alert, and attentive. Speech is normal without any aphasia or dysarthria, although he is slow somewhat to answer questions.. The patient can name objects, repeat phrases, and has normal spontaneous speech. Mentation and thought processes are intact, with orientation to person, place and time, and normal fund of knowledge. Attention and concentration are normal. Mood seems down and affect seems flat.. General appearance and grooming are normal. Short and long-term memory are intact. Pupils are 4 mm bilaterally and reactive to light. Extraocular eye muscles are intact without nystagmus. Visual acuity and visual vargas seem normal grossly to confrontation. There are no deficits to sensation in the face in all 3 distributions of the fifth cranial nerve bilaterally. Corneal reflexes are positive bilaterally. Facial strength and symmetry was normal bilaterally. Hearing seems normal bilaterally. Palate moves well without asymmetry. There is normal sternocleidomastoid and trapezius (shoulder shrug) strength bilaterally. Tongue is midline with good strength bilaterally. he has a mild masklike face and has moderate bradykinesia in general. Neck has a full range of motion without discomfort. There are no cervical bruits bilaterally. There are no cranial or ocular bruits. Heart is without murmur. There is a regular rhythm and rate. Cervical, thoracic, and lumbar spine are nontender to palpation. Gait is narrow based And he is slow and shuffling when he walks. He has decreased arm swing when he walks. Turns are slow. Stands with feet together and eyes open is reasonable. With eyes closed he falls backwards. With outstretched arms there is no drift. There are no resting, postural, or action tremors. There is no ataxia with finger to nose testing. There is good facility in the hands. No other abnormal involuntary movements are noted. Motor strength is 5/5 diffusely in the arms bilaterally including deltoids, biceps, triceps, brachioradialis, wrist flexors and extensors, logistics account manager, and intrinsic hand muscles. Motor strength is 5/5 diffusely in the legs bilaterally including hip flexors, quadriceps, hamstrings, gastrocnemius, tibialis anterior, tibialis posterior, and Peroneii muscles. Toe extensors are normal and there is good bulk in the extensor digitorum brevis muscles bilaterally. New Therefore despite his feeling of proximal leg weakness, he has normal and symmetrical strength in the legs. The limbs Have mild rigidity without cogwheeling diffusely. There is no spasticity.. There is no atrophy noted in the muscles. Muscle bulk is normal, there is no tenderness to palpation, no myotonia to percussion, and no fasciculations seen. Sensory examination is intact to touch and pin throughout all 4 limbs diffusely. Reflexes are 2/4 in the biceps, triceps, brachioradialis, quadriceps, and Achi lles tendons bilaterally. There is no clonus bilaterally. Toes are downgoing with plantar stimulation bilaterally. Peripheral pulses are present and of normal quality distally in all 4 limbs. There is no peripheral edema noted in the limbs. Results & Data Vital Signs (Past 12 Hours) Vital Signs Temp Pulse Pulse Resp BP Pulse Ox O2 Del Method 11/10/22 03:35 36.6 C 85 20 112/71 95 Room Air 11/10/22 00:04 61 11/09/22 23:14 36.4 C L 61 22 123/75 91 Room Air 11/09/22 21:59 11/09/22 22:15 Room Air 11/09/22 22:15 36.3 C L 67 20 150/82 H 96 Room Air O2 Del Method 11/10/22 03:35 11/10/22 00:04 11/09/22 23:14 11/09/22 21:59 Room Air 11/09/22 22:15 11/09/22 22:15 PG Care Time/CCT Total # of Minutes Spent Total Time Spent with Patient: Total time spent is greater than 50% in coordination of care (as documented) at patient's floor/unit and/or counseling patient: Coding Level of Care Code 25358 IN/OBS CONSULT LVL 5,80M Diagnoses Alcohol use disorder in remission F10.91 Wernicke-Korsakoff syndrome F04 Ambulatory dysfunction R26.2 Anxiety and depression F41.9; F32.A Seizure disorder G40.909 Time Spent (min) 100
[2022-11-10] MEDS ORDERED: NON-FORMULARY MEDICATION (Multivitamin Tablet) PO SCH (09:00)
[2022-11-10] MEDS: CYANOCOBALAMIN 1000 MCG/ML VIAL IM SCH (11:23)
[2022-11-10] MEDS: MULTIVITAMIN TAB PO SCH (11:23)
--- NOTE | 2022-11-10 16:59 | Hospitalist Progress Note ---
Date of Service November 10, 2022 Assessment & Plan (1) Ataxia: (2) Alcohol use disorder in remission: (3) Seizure disorder: (4) Anxiety and depression: (5) HTN (hypertension): Plan This is a 62-year-old male with PMH of hypertension, remote seizure disorder, significant history of alcohol abuse, anxiety and depression, GERD and other medical problems listed below who presents with acute ambulatory dysfunction and impaired cognition concerning for vitamin deficiency and related syndromes including Wernicke's encephalopathy. Ataxia with ambulatory dysfunction Possible Warnicke's encephalopathy Impaired cognition H/o alcohol abuse Recent admission to [facility] 10/30-11/03 for etoh withdrawal, notable ambulatory dysfunction and slowed cognition since discharge home Discharged home on Librium taper and naltrexone Last drink 10/29, today's etoh level normal. No s/sx of etoh withdrawal on admission today, so we will hold Librium and Naltrexone at this time as it may be contributing to slowed cognition Head CT without acute intracranial abnormality Concern for significant vitamin deficiency in setting of minimal appetite, h/o alcoholism and Topamax use Thiamine, B12, folate, MMA -B12 is normal at 713, folic acid is normal at 18.95 and mid thigh malonic acid is pending. Hold vitamin B1 level is pending Received IV folate, thiamine and B12 in the ED Continue Thiamine 500mg Q8H for concern for Wernicke's encephalopathy Continue B12, folate daily Brain MRI w/wo contrast pending, carotid dopplers-unremarkable Neurology consulted-appreciate input and recommendation Seizure disorder Remote h/o seizure 16 years ago. Continue Topamax Anxiety and depression H/o grief from recent losses over past year, evaluated by psych at [facility] with recommendation for continued outpatient therapy. Continue SSRI Reduce Trazodone to 50mg HS HTN Continue amlodipine DVT Ppx: SQ lovenox Code status: FULL PCP: Bhupendra Dispo: Admitted to PCU Discussed with the in detail He was functioning reasonably before stopping alcohol intake His symptoms are seems to be mostly related to alcohol withdrawal and is complicated by effect of alcohol in the brain in the form of Warnicke's and also neuropathy The patient is agreeable to go to rehab on improvement and the family is very supportive Condition expected to improve and time will tell about it All of her questions answered Admission and Anticipated Discharge Date Admission Date: November 09, 2022 Subjective 11/10/2022 The patient was seen and examined in telemetry unit in presence of the family members specially the Remains drowsy and sleepy Has been sleeping recently and when when awake remains very tremulous Review of Systems Review of Systems: Unobtainable due to cognitive status Physical Exam Physical Exam: Lying in bed comfortably and sleeping Constitutional: well developed, well nourished and + ill appearing Eyes: PERRL, conjunctivae normal, anicteric sclerae ENMT: external ear and nose normal, oropharynx normal Neck: trachea midline, no thyromegaly Respiratory: no respiratory distress Auscultation: + diminished lung sounds and + crackles (Minimal crackles at the bases) Cardiovascular: Rate/Rhythm: regular rate and regular rhythm; not tachycardic Heart Sounds: normal S1 and normal S2; no murmur Extremities: no edema Gastrointestinal (Abdomen): Inspection/Auscultation: normal bowel sounds; abdomen not distended Percussion/Palpation: abdomen soft; abdomen nontender Musculoskeletal: No acute arthritis involving any joint Neurologic: Very drowsy and sleepy Results & Data Results & Data Vital Signs (Past 12 Hours) Vital Signs Temp Pulse Resp BP Pulse Ox O2 Del Method 11/10/22 16:00 36.6 C 78 20 124/70 96 Room Air 11/10/22 12:00 36.7 C 77 18 134/69 97 Room Air 11/10/22 08:00 Room Air 11/10/22 08:00 36.6 C 74 18 125/69 95 Room Air Laboratory Results Short CBC 11/10/22 Range/Units 05:39 WBC 5.23 (4.8-10.8) K/ul Hgb 13.4 L (14.0-18.0) g/dl Hct 39.2 L (42.0-52.0) % Plt Count 274 (130-400) K/uL BMP 11/10/22 05:39 Sodium 139 Potassium 3.4 L Chloride 108 H Carbon Dioxide 26 BUN 13 Creatinine 0.87 Glucose 83 Calcium 8.5 L Urine 11/10/22 Range/Units Unknown Urine Color Dark Yellow Urine Appearance Clear (Clear) Urine pH 6.0 (4.5-7.5) Ur Specific [place] 1.035 H (1.000-1.030) Urine Protein Trace H (Negative) Urine Glucose (UA) Negative (Negative) Medications Administered Current Inpatient Medications Acetaminophen (Acetaminophen 325 Mg Tab) 650 mg PO Q4H PRN PRN Reason: Pain or Fever Stop: 12/09/22 21:58 Amlodipine Besylate (Amlodipine Besylate 5 Mg Tab) 10 mg PO QAM [facility] Stop: 12/10/22 08:59 Last Admin: 11/10/22 08:21 Dose: 10 mg Atorvastatin Calcium (Atorvastatin 20 Mg Tab) 20 mg PO HS [facility] Stop: 12/09/22 21:58 Last Admin: 11/09/22 23:49 Dose: 20 mg Cyanocobalamin (Cyanocobalamin 1000 Mcg/Ml Vial) 1,000 mcg IM DAILY@1200 [facility] Stop: 11/14/22 12:01 Last Admin: 11/10/22 11:23 Dose: 1,000 mcg Enoxaparin Sodium (Enoxaparin Inj 40 Mg/0.4 Ml Syr) 40 mg SQ Q24H [facility] Stop: 12/09/22 22:59 Last Admin: 11/09/22 23:48 Dose: 40 mg Escitalopram Oxalate (Escitalopram Oxalate 20 Mg Tab) [facility] [place] Stop: 12/10/22 08:59 Last Admin: 11/10/22 08:20 Dose: 20 mg Folic Acid 1 mg/ Syringe 10 mls @ 5 mls/[facility] [place] Stop: 12/10/22 08:59 Last Admin: 11/10/22 08:20 Dose: 5 mls/min Thiamine HCl 500 mg/ Sodium (Chloride) 55 mls @ 210 mls/hr IV Q8H [facility] Stop: 12/10/22 01:59 Last Infusion: 11/10/22 10:40 Dose: Infused Multivitamins (Multivitamin Tab) 1 tab [facility] [place] Stop: 12/09/22 17:44 Last Admin: 11/10/22 11:23 Dose: 1 tab Ondansetron HCl (Ondansetron Inj 2 Mg/Ml 2 Ml Vial) 4 mg IV Q6H PRN PRN Reason: Nausea Stop: 12/09/22 21:58 Pantoprazole Sodium ([facility]ole 40 Mg Tab) [facility] Stop: 12/10/22 06:29 Last Admin: 11/10/22 05:33 Dose: 40 mg Polyethylene Glycol (Polyethylene (Miralax) 17 Gm Pack) 17 gm PO DAILY PRN PRN Reason: Constipation Stop: 12/09/22 21:58 Tamsulosin HCl (Tamsulosin Hcl 0.4 Mg Cap) 0.4 mg PO QAM [facility] Stop: 12/10/22 08:59 Last Admin: 11/10/22 08:20 Dose: 0.4 mg Topiramate (Topiramate 25 Mg Tab) 25 mg PO BID [facility] Stop: 12/09/22 21:58 Last Admin: 11/10/22 08:20 Dose: 25 mg Topiramate (Topiramate 50 Mg Tab) 50 mg PO BID [facility] Stop: 12/09/22 21:58 Last Admin: 11/10/22 08:21 Dose: 50 mg Trazodone HCl (Trazodone Hcl 50 Mg Tab) 50 mg PO HS [facility] Stop: 12/09/22 21:58 Last Admin: 11/09/22 23:49 Dose: 50 mg
[2022-11-10] MEDS: ASPIRIN 81 MG ECTAB PO SCH (18:30)
[2022-11-10] MEDS: ATORVASTATIN 20 MG TAB PO SCH (20:05)
[2022-11-10] MEDS: traZODone HCL 50 MG TAB PO SCH (20:05)
[2022-11-10] MEDS: ENOXAPARIN INJ 40 MG/0.4 ML SYR SQ SCH (22:51)
[2022-11-11] MEDS: THIAMINE HCL 500 MG in SODIUM CHLORIDE 0.9% 50 ML IV SCH ×3 (01:37→19:12)
[2022-11-11] MEDS: PANTOprazole 40 MG TAB PO SCH (05:46)
[2022-11-11 06:24] LABS: Basophils # (auto) 0.11 K/uL (0-0.2); Basophils % (auto) 1.9 %; Eosinophils # (auto) 0.16 K/uL (0-0.50); Eosinophils % (auto) 2.8 %; Hematocrit (blood only) 39.8 % (42.0-52.0); Hemoglobin 13.5 g/dl (14.0-18.0); Immature Granulocytes # (auto) 0.05 K/uL (0.01-0.20); Immature Granulocytes % (auto) 0.9 %; Lymphocytes # (auto) 1.35 K/uL (1.2-3.4); Lymphocytes % (auto) 23.7 %; Mean Corpuscular Hemoglobin 34.2 pg (25.0-34.0); Mean Corpuscular Hgb Conc 33.9 g/dL (32.0-36.0); Mean Corpuscular Volume 100.8 fL (80.0-100.0); Mean Platelet Volume 10.1 fL (9.4-12.4); Monocytes # (auto) 0.85 K/uL (0.11-0.59); Monocytes % (auto) 14.9 %; Neutrophils # (auto) 3.17 K/uL (1.40-6.50); Neutrophils % (auto) 55.8 %; Platelet Count 299 K/uL (130-400); RDW Coefficient of Variation 11.9 % (11.5-14.5); RDW Standard Deviation 43.8 fL (36.4-46.3); Red Blood Count 3.95 M/uL (4.70-6.10); White Blood Count 5.69 K/ul (4.8-10.8)
[2022-11-11 06:41] LABS: Albumin Globulin Ratio 1.4 (0.9-2); Albumin Level 3.5 gm/dl (3.4-5.0); BUN Creatinine Ratio 13.4 (10-20); Bilirubin,Total 0.4 mg/dl (0.2-1.0); Calcium 8.8 mg/dl (8.6-10.3); Creatinine Clr Calc Pharmacy 77.4 ml/min; Est GFR (African American) 97.3 ml/min; Est GFR (Non-African American) 83.9 ml/min; Globulin 2.5 gm/dl (2.5-4.0); Magnesium 1.8 mg/dl (1.7-2.4); Phosphorus 3.5 mg/dl (2.5-4.9); Potassium 3.3 mmol/L (3.5-5.1)
--- NOTE | 2022-11-11 08:45 | Hospitalist Progress Note ---
Date of Service November 11, 2022 Assessment & Plan (1) Ataxia: (2) Alcohol use disorder in remission: (3) Seizure disorder: (4) Anxiety and depression: (5) HTN (hypertension): (6) Vitamin D deficiency: Plan This is a 62-year-old male with PMH of hypertension, remote seizure disorder, significant history of alcohol abuse, anxiety and depression, GERD and other medical problems listed below who presents with acute ambulatory dysfunction and impaired cognition concerning for vitamin deficiency and related syndromes including Wernicke's encephalopathy. Ataxia with ambulatory dysfunction Possible Warnicke's encephalopathy Impaired cognition H/o alcohol abuse Recent admission to [facility] 10/30-11/03 for etoh withdrawal, notable ambulatory dysfunction and slowed cognition since discharge home Discharged home on Librium taper and naltrexone Last drink 10/29, today's etoh level normal. No s/sx of etoh withdrawal on admission today, so we will hold Librium and Naltrexone at this time as it may be contributing to slowed cognition Head CT without acute intracranial abnormality Concern for significant vitamin deficiency in setting of minimal appetite, h/o alcoholism and Topamax use Thiamine, B12, folate, MMA -B12 is normal at 713, folic acid is normal at 18.95 and mid thigh malonic acid is pending. Hold vitamin B1 level is pending Received IV folate, thiamine and B12 in the ED Continue Thiamine 500mg Q8H for concern for Wernicke's encephalopathy Continue B12, folate daily Brain MRI w/wo contrast pending, carotid dopplers-unremarkable Neurology consulted Will cont current therapies and await PT/OT recommendations for safety to return home Cont to encourage PO intake. vit D deficiency supplementation started Seizure disorder Remote h/o seizure 16 years ago. Continue Topamax Anxiety and depression H/o grief from recent losses over past year, evaluated by psych at [facility] with recommendation for continued outpatient therapy. Continue SSRI Reduce Trazodone to 50mg HS HTN Continue amlodipine DVT Ppx: SQ lovenox Code status: FULL Dispo: pending PT/OT recommendations DO Virgilio Mcgowan Hospitalist Admission and Anticipated Discharge Date Admission Date: November 09, 2022 Subjective 62 yo M with functional and cognitive decline. He is more spry today and reports feeling well and wants to go home. He reports walking around the hallways yesterday but hasn't gotten out of bed yet today He is able to sit up independently for the exam today, with no issue He is mentating clearly and ROs is negative. Per primary RN, he ate 25% of breakfast and no lunch I communicated with soil science teacher regarding his Vit D def Per RN, possible missed urinary voids into the urinal Review of Systems Review of Systems: All systems were reviewed and negative except as indicated on HPI above. Physical Exam Physical Exam: CONSTITUTIONAL: WNWD, vitals as above, generally well-appearing, NAD EYES: normal conjunctivae, no scleral icterus ENT: external ear and nose normal, oropharynx clear NECK: trachea midline, no lymphadenopathy RESPIRATORY: clear to auscultation bilaterally, no crackles, rales or wheezes, normal respiratory effort CARDIOVASCULAR: regular rate and rhythm, S1 and 2 heard without murmurs, gallops or rubs, no JVD, no peripheral edema CHEST: inspection of chest was normal GASTROINTESTINAL: soft, nontender, ND, no guarding MUSCULOSKELETAL: strength 5/5 throughout, head is normocephalic and atraumatic SKIN: warm and dry NEUROLOGIC: CN 2-12 grossly intact, no sensory deficit, normal cognition, normal speech, no tremor PSYCHIATRIC: alert cooperative and oriented to person, place and time. Euthymic mood, makes good eye contact, language grossly intact, recent and remote memory grossly intact. Results & Data Results & Data Vital Signs (Past 12 Hours) Vital Signs Temp Pulse Pulse Resp BP Pulse Ox O2 Del Method 11/11/22 08:13 36.5 C 88 18 139/74 97 Room Air 11/11/22 02:52 36.5 C 62 16 126/82 93 Room Air 11/10/22 23:33 67 11/10/22 22:48 36.5 C 68 18 125/76 93 Room Air Laboratory Results Short CBC 11/11/22 Range/Units 05:50 WBC 5.69 (4.8-10.8) K/ul Hgb 13.5 L (14.0-18.0) g/dl Hct 39.8 L (42.0-52.0) % Plt Count 299 (130-400) K/uL BMP 11/11/22 05:50 Sodium 139 Potassium 3.3 L Chloride 108 H Carbon Dioxide 23 BUN 13 Creatinine 0.97 Glucose 80 Calcium 8.8 Liver Function 11/11/22 Range/Units 05:50 Total Bilirubin 0.4 (0.2-1.0) mg/dl AST 20 (13-39) U/L ALT 19 (7-52) U/L Alkaline Phosphatase 53 (34-104) U/L Albumin 3.5 (3.4-5.0) gm/dl Medications Administered Current Inpatient Medications Acetaminophen (Acetaminophen 325 Mg Tab) 650 mg PO Q4H PRN PRN Reason: Pain or Fever Stop: 12/09/22 21:58 Amlodipine Besylate (Amlodipine Besylate 5 Mg Tab) 10 mg PO [facility] Stop: 12/10/22 08:59 Last Admin: 11/10/22 08:21 Dose: 10 mg Aspirin (Aspirin 81 Mg Ectab) 81 mg PO [facility] Stop: 12/10/22 16:59 Last Admin: 11/10/22 18:30 Dose: 81 mg Atorvastatin Calcium (Atorvastatin 20 Mg Tab) 20 mg PO [facility] Stop: 12/09/22 21:58 Last Admin: 11/10/22 20:05 Dose: 20 mg Cyanocobalamin (Cyanocobalamin 1000 Mcg/Ml Vial) 1,000 mcg IM DAILY@1200 [facility] Stop: 11/14/22 12:01 Last Admin: 11/10/22 11:23 Dose: 1,000 mcg Enoxaparin Sodium (Enoxaparin Inj 40 Mg/0.4 Ml Syr) 40 mg SQ Q24H [facility] Stop: 12/09/22 22:59 Last Admin: 11/10/22 22:51 Dose: 40 mg Escitalopram Oxalate (Escitalopram Oxalate 20 Mg Tab) 20 mg PO [facility] Stop: 12/10/22 08:59 Last Admin: 11/10/22 08:20 Dose: 20 mg Folic Acid 1 mg/ Syringe 10 mls @ 5 mls/[facility] Stop: 12/10/22 08:59 Last Admin: 11/10/22 08:20 Dose: 5 mls/min Thiamine HCl 500 mg/ Sodium (Chloride) 55 mls @ 210 mls/hr IV Q8H [facility] Stop: 12/10/22 01:59 Last Infusion: 11/11/22 02:02 Dose: Infused Multivitamins (Multivitamin Tab) 1 tab [facility] Stop: 12/09/22 17:44 Last Admin: 11/10/22 11:23 Dose: 1 tab Ondansetron HCl (Ondansetron Inj 2 Mg/Ml 2 Ml Vial) 4 mg IV Q6H PRN PRN Reason: Nausea Stop: 12/09/22 21:58 Pantoprazole Sodium (Pantoprazole 40 Mg Tab) 40 mg PO DAILYBB [facility] Stop: 12/10/22 06:29 Last Admin: 11/11/22 05:46 Dose: 40 mg Polyethylene Glycol (Polyethylene (Miralax) 17 Gm Pack) 17 gm PO DAILY PRN PRN Reason: Constipation Stop: 12/09/22 21:58 Tamsulosin HCl (Tamsulosin Hcl 0.4 Mg Cap) 0.4 mg PO QAM [facility] Stop: 12/10/22 08:59 Last Admin: 11/10/22 08:20 Dose: 0.4 mg Topiramate (Topiramate 25 Mg Tab) 25 mg PO BID [facility] Stop: 12/09/22 21:58 Last Admin: 11/10/22 20:05 Dose: 25 mg Topiramate (Topiramate 50 Mg Tab) 50 mg PO BID [facility] Stop: 12/09/22 21:58 Last Admin: 11/10/22 20:06 Dose: 50 mg Trazodone HCl (Trazodone Hcl 50 Mg Tab) 50 mg PO HS [facility] Stop: 12/09/22 21:58 Last Admin: 11/10/22 20:05 Dose: 50 mg
[2022-11-11] MEDS: TAMSULOSIN HCL 0.4 MG CAP PO SCH (10:10)
[2022-11-11] MEDS: CYANOCOBALAMIN 1000 MCG/ML VIAL IM SCH (10:10)
[2022-11-11] MEDS: ESCITALOPRAM OXALATE 20 MG TAB PO SCH (10:10)
[2022-11-11] MEDS: TOPIRAMATE 50 MG TAB PO SCH ×2 (10:10→22:01)
[2022-11-11] MEDS: amLODIPine BESYLATE 5 MG TAB PO SCH (10:11)
[2022-11-11] MEDS: FOLIC ACID 1 MG in SYRINGE 9.8 ML IV SCH (10:11)
[2022-11-11] MEDS: TOPIRAMATE 25 MG TAB PO SCH ×2 (10:11→22:01)
[2022-11-11] MEDS: MULTIVITAMIN TAB PO SCH (10:11)
[2022-11-11] MEDS: ASPIRIN 81 MG ECTAB PO SCH (10:11)
[2022-11-11] MEDS ORDERED: ERGOCALCIFEROL 50,000 UNITS 1250 MCG CAP PO SCH (14:00)
[2022-11-11] MEDS: traZODone HCL 50 MG TAB PO SCH (22:01)
[2022-11-11] MEDS: ATORVASTATIN 20 MG TAB PO SCH (22:01)
[2022-11-11] MEDS: ENOXAPARIN INJ 40 MG/0.4 ML SYR SQ SCH (22:01)
[2022-11-12] MEDS: THIAMINE HCL 500 MG in SODIUM CHLORIDE 0.9% 50 ML IV SCH ×2 (02:10→11:30)
[2022-11-12] MEDS: PANTOprazole 40 MG TAB PO SCH (06:34)
[2022-11-12 06:57] LABS: Creatinine Clr Calc Pharmacy 84.3 ml/min; Est GFR (Non-African American) 92.3 ml/min
--- NOTE | 2022-11-12 08:13 | Hospitalist Progress Note ---
Date of Service November 12, 2022 Assessment & Plan (1) Ataxia: (2) Alcohol use disorder in remission: (3) Seizure disorder: (4) Anxiety and depression: (5) HTN (hypertension): (6) Vitamin D deficiency: Plan This is a 62-year-old male with PMH of hypertension, remote seizure disorder, significant history of alcohol abuse, anxiety and depression, GERD and other medical problems listed below who presents with acute ambulatory dysfunction and impaired cognition concerning for vitamin deficiency and related syndromes including Wernicke's encephalopathy. Ataxia with ambulatory dysfunction Possible Warnicke's encephalopathy Impaired cognition H/o alcohol abuse Recent admission to [facility] 10/30-11/03 for etoh withdrawal, notable ambulatory dysfunction and slowed cognition since discharge home Discharged home on Librium taper and naltrexone Last drink 10/29, today's etoh level normal. No s/sx of etoh withdrawal on admission today, so we will hold Librium and Naltrexone at this time as it may be contributing to slowed cognition Head CT without acute intracranial abnormality Concern for significant vitamin deficiency in setting of minimal appetite, h/o alcoholism and Topamax use Thiamine, B12, folate, MMA -B12 is normal at 713, folic acid is normal at 18.95 and mid thigh malonic acid is pending. Hold vitamin B1 level is pending Received IV folate, thiamine and B12 in the ED Continue Thiamine 500mg Q8H for concern for Wernicke's encephalopathy Continue B12, folate daily Brain MRI w/wo contrast pending, carotid dopplers-unremarkable Neurology consulted Will cont current therapies and await PT/OT recommendations for safety to return home Cont to encourage PO intake. vit D deficiency supplementation started Seizure disorder Remote h/o seizure 16 years ago. Continue Topamax Anxiety and depression H/o grief from recent losses over past year, evaluated by psych at [facility] with recommendation for continued outpatient therapy. Continue SSRI Reduce Trazodone to 50mg HS HTN Continue amlodipine DVT Ppx: SQ lovenox Code status: FULL Dispo: rehab recommended, however, patient is currently declining. I spoke with his by phone and referred her to CM to discuss options. Will await their decision on this. He would need to continue on IM/PO B1 replacement going home for a few days. also reports that she wants him to continue the oral naltrexone at discharge, and she has him set up to see an outpatient counselor for rehab from [facility]. I spent a total of30 minutes coordinating, documenting, and providing care for this patient excluding time spent in the performance of separately billed services DO Virgilio Mcgowan Hospitalist Admission and Anticipated Discharge Date Admission Date: November 09, 2022 Subjective 62 yo M with functional and cognitive decline. Mentating clearly and reports wanting to go home States his weakness has resolved and he has no issues wtih decreased sensation or other issues. Review of Systems Review of Systems: All systems were reviewed and negative except as indicated on HPI above. Physical Exam Physical Exam: CONSTITUTIONAL: WNWD, vitals as above, generally well-appearing, NAD EYES: normal conjunctivae, no scleral icterus ENT: external ear and nose normal, oropharynx clear NECK: trachea midline, no lymphadenopathy RESPIRATORY: clear to auscultation bilaterally, no crackles, rales or wheezes, normal respiratory effort CARDIOVASCULAR: regular rate and rhythm, S1 and 2 heard without murmurs, gallops or rubs, no JVD, no peripheral edema CHEST: inspection of chest was normal GASTROINTESTINAL: soft, nontender, ND, no guarding MUSCULOSKELETAL: strength 5/5 throughout, head is normocephalic and atraumatic SKIN: warm and dry NEUROLOGIC: CN 2-12 grossly intact, no sensory deficit, normal cognition, normal speech, no tremor PSYCHIATRIC: alert cooperative and oriented to person, place and time. Euthymic mood, makes good eye contact, language grossly intact, recent and remote memory grossly intact. Results & Data Results & Data Vital Signs (Past 12 Hours) Vital Signs Temp Pulse Pulse Resp BP Pulse Ox O2 Del Method 11/12/22 03:58 36.3 C L 62 17 116/73 94 Room Air 11/12/22 00:00 65 11/11/22 22:52 36.9 C 66 16 113/72 93 Room Air Laboratory Results BMP 11/12/22 05:30 Creatinine 0.89 Medications Administered Current Inpatient Medications Acetaminophen (Acetaminophen 325 Mg Tab) 650 mg PO Q4H PRN PRN Reason: Pain or Fever Stop: 12/09/22 21:58 Amlodipine Besylate (A[facility]ipine Besylate 5 Mg Tab) [facility] Stop: 12/10/22 08:59 Last Admin: 11/11/22 10:11 Dose: 10 mg Aspirin (Aspirin 81 Mg Ectab) [facility] Stop: 12/10/22 16:59 Last Admin: 11/11/22 10:11 Dose: 81 mg Atorvastatin Calcium (Atorvastatin 20 Mg Tab) 20 mg PO HS [facility] Stop: 12/09/22 21:58 Last Admin: 11/11/22 22:01 Dose: 20 mg Cyanocobalamin (Cyanocobalamin 1000 Mcg/Ml Vial) 1,000 mcg IM DAILY@1200 [facility] Stop: 11/14/22 12:01 Last Admin: 11/11/22 10:10 Dose: 1,000 mcg Enoxaparin Sodium (Enoxaparin Inj 40 Mg/0.4 Ml Syr) 40 mg SQ Q24H [facility] Stop: 12/09/22 22:59 Last Admin: 11/11/22 22:01 Dose: 40 mg Ergocalciferol (Ergocalciferol 50,000 Units 1250 Mcg Cap) 50,000 units PO Q7D@0900 [facility] Stop: 12/11/22 13:59 Last Admin: 11/11/22 14:56 Dose: 50,000 units Escitalopram Oxalate (Escitalopram Oxalate 20 Mg Tab) 20 [facility] Stop: 12/10/22 08:59 Last Admin: 11/11/22 10:10 Dose: 20 mg Folic Acid 1 mg/ Syringe 10 mls @ 5 mls/min [facility] Stop: 12/10/22 08:59 Last Admin: 11/11/22 10:11 Dose: 5 mls/min Thiamine HCl 500 mg/ Sodium (Chloride) 55 mls @ 210 mls/hr IV Q8H [facility] Stop: 12/10/22 01:59 Last Infusion: 11/12/22 02:37 Dose: Infused Multivitamins (Multivitamin Tab) 1 [facility] Stop: 12/09/22 17:44 Last Admin: 11/11/22 10:11 Dose: 1 tab Ondansetron HCl (Ondansetron Inj 2 Mg/Ml 2 Ml Vial) 4 mg IV Q6H PRN PRN Reason: Nausea Stop: 12/09/22 21:58 Pantoprazole Sodium (Pantoprazole 40 Mg Tab) [facility]: 12/10/22 06:29 Last Admin: 11/12/22 06:34 Dose: 40 mg Polyethylene Glycol (Polyethylene (Miralax) 17 Gm Pack) 17 gm PO DAILY PRN PRN Reason: Constipation Stop: 12/09/22 21:58 Tamsulosin HCl (Tamsulosin Hcl 0.4 Mg Cap) 0.4 mg PO QAM [facility] Stop: 12/10/22 08:59 Last Admin: 11/11/22 10:10 Dose: 0.4 mg Topiramate (Topiramate 25 Mg Tab) 25 mg PO BID [facility] Stop: 12/09/22 21:58 Last Admin: 11/11/22 22:01 Dose: 25 mg Topiramate (Topiramate 50 Mg Tab) 50 mg PO BID [facility] Stop: 12/09/22 21:58 Last Admin: 11/11/22 22:01 Dose: 50 mg Trazodone HCl (Trazodone Hcl 50 Mg Tab) 50 mg PO HS [facility] Stop: 12/09/22 21:58 Last Admin: 11/11/22 22:01 Dose: 50 mg
[2022-11-12] MEDS: FOLIC ACID 1 MG in SYRINGE 9.8 ML IV SCH (08:54)
[2022-11-12] MEDS: amLODIPine BESYLATE 5 MG TAB PO SCH (08:55)
[2022-11-12] MEDS: ESCITALOPRAM OXALATE 20 MG TAB PO SCH (08:55)
[2022-11-12] MEDS: TOPIRAMATE 50 MG TAB PO SCH ×2 (08:55→20:16)
[2022-11-12] MEDS: TOPIRAMATE 25 MG TAB PO SCH ×2 (08:55→20:16)
[2022-11-12] MEDS: MULTIVITAMIN TAB PO SCH (08:55)
[2022-11-12] MEDS: TAMSULOSIN HCL 0.4 MG CAP PO SCH (08:55)
[2022-11-12] MEDS: ASPIRIN 81 MG ECTAB PO SCH (08:55)
[2022-11-12] MEDS: CYANOCOBALAMIN 1000 MCG/ML VIAL IM SCH (11:30)
[2022-11-12] MEDS: ATORVASTATIN 20 MG TAB PO SCH (20:17)
[2022-11-12] MEDS: traZODone HCL 50 MG TAB PO SCH (20:21)
[2022-11-12] MEDS: ENOXAPARIN INJ 40 MG/0.4 ML SYR SQ SCH (22:36)
[2022-11-13] MEDS: PANTOprazole 40 MG TAB PO SCH (06:23)
[2022-11-13 06:44] LABS: BUN Creatinine Ratio 13.5 (10-20); Calcium 8.9 mg/dl (8.6-10.3); Creatinine Clr Calc Pharmacy 78.2 ml/min; Est GFR (African American) 98.5 ml/min; Magnesium 1.7 mg/dl (1.7-2.4); Phosphorus 3.4 mg/dl (2.5-4.9); Potassium 3.2 mmol/L (3.5-5.1)
[2022-11-13] MEDS: TAMSULOSIN HCL 0.4 MG CAP PO SCH (07:57)
[2022-11-13] MEDS: ASPIRIN 81 MG ECTAB PO SCH (07:57)
[2022-11-13] MEDS: amLODIPine BESYLATE 5 MG TAB PO SCH (07:57)
[2022-11-13] MEDS: TOPIRAMATE 25 MG TAB PO SCH ×2 (07:57→20:29)
[2022-11-13] MEDS: FOLIC ACID 1 MG TAB PO SCH (07:57)
[2022-11-13] MEDS: MULTIVITAMIN TAB PO SCH (07:57)
[2022-11-13] MEDS: ESCITALOPRAM OXALATE 20 MG TAB PO SCH (07:57)
[2022-11-13] MEDS: CYANOCOBALAMIN 1000 MCG/ML VIAL IM SCH (07:57)
[2022-11-13] MEDS: TOPIRAMATE 50 MG TAB PO SCH ×2 (07:58→20:29)
[2022-11-13] MEDS: THIAMINE HCL 250 MG in SODIUM CHLORIDE 0.9% 50 ML IV SCH (07:58)
[2022-11-13] MEDS: POTASSIUM CHLORIDE CRTAB 20 MEQ TABCR PO SCH (11:08)
--- NOTE | 2022-11-13 15:44 | Hospitalist Progress Note ---
Date of Service November 13, 2022 Assessment & Plan (1) Ataxia: (2) Alcohol use disorder in remission: (3) Seizure disorder: (4) Anxiety and depression: (5) HTN (hypertension): (6) Vitamin D deficiency: Plan This is a 62-year-old male with PMH of hypertension, remote seizure disorder, significant history of alcohol abuse, anxiety and depression, GERD and other medical problems listed below who presents with acute ambulatory dysfunction and impaired cognition concerning for vitamin deficiency and related syndromes including Wernicke's encephalopathy. Brain MRI- No acute territorial infarct. No acute intracranial hemorrhage. No midline shift or mass effect. Cerebral volume loss, advanced for the patient's age, which may besecondary to the patient's history of alcoholism. CT head- No acute intracranial abnormality. Carotid doppler- No hemodynamically significant stenosis of the carotid arteries. Ataxia with ambulatory dysfunction, Impaired cognition Possible Wernicke's encephalopathy H/o alcohol abuse Recent admission to [facility] 10/30-11/03 for etoh withdrawal, notable ambulatory dysfunction and slowed cognition since discharge home Discharged home on Librium taper and naltrexone Last drink 10/29, etoh level normal on admission. No s/sx of alcohol withdrawal on admission Head CT without acute intracranial abnormality Concern for significant vitamin deficiency in setting of minimal appetite, h/o alcoholism and Topamax use Thiamine, B12, folate, MMA -B12 is normal at 713, folic acid is normal at 18.95, MMA WNL at 128. Whol vitamin B1 level is still pending Received IV folate, thiamine and B12 in the ED S/p iv thiamine 500 mg q24 hr x3 days, now on 250 mg daily x 5 days for suspected wernicke's encephalopathy Continue B12, folate daily Neuro recs noted Vit D deficiency- supplementation started Seizure disorder- Remote h/o seizure 16 years ago. Continue Topamax Anxiety and depression - H/o grief from recent losses over past year, evaluated by psych at [facility] with recommendation for continued outpatient therapy. Continue SSRI - Reduced Trazodone to 50mg HS HTN Continue amlodipine Hypokalemia- repleted, recheck in a.m. DVT Ppx: SQ lovenox Code status: FULL Dispo: On iv thiamine for Wernicke's. PT OT recommends rehab. Admission and Anticipated Discharge Date Admission Date: November 09, 2022 Subjective Seen and examined at bedside. He feels better from admission. States he was able to walk to the bathroom and felt some imbalance only when turning around. No fever, chills, chest pain, shortness of breath, nausea or vomiting Review of Systems Review of Systems: All systems reviewed & are unremarkable except as noted in Subjective Physical Exam Physical Exam: General: Lying comfortably in bed, not in distress, on room air HEENT: EOMI, LACY, MMM Chest: Clear breath sounds bilaterally, no wheezes or crackles CVS: Regular rate and rhythm, normal heart sounds, no murmur Abdomen: Soft, non tender, not distended, normal bowel sounds Neuro: Awake, alert, oriented, conversing well, non focal Extremities: No cyanosis, clubbing or edema Results & Data Results & Data Vital Signs (Past 12 Hours) Vital Signs Temp Pulse Pulse Resp BP BP Pulse Ox 11/13/22 15:24 36.9 C 67 18 124/79 95 11/13/22 11:11 36.4 C L 65 16 130/80 94 11/13/22 08:00 61 11/13/22 08:00 36.3 C L 66 20 131/85 93 O2 Del Method 11/13/22 15:24 Room Air 11/13/22 11:11 Room Air 11/13/22 08:00 11/13/22 08:00 Room Air Laboratory Results BMP 11/13/22 05:23 Sodium 139 Potassium 3.2 L Chloride 108 H Carbon Dioxide 25 BUN 13 Creatinine 0.96 Glucose 89 Calcium 8.9 Medications Administered Current Inpatient Medications Acetaminophen (Acetaminophen 325 Mg Tab) 650 mg PO Q4H PRN PRN Reason: Pain or Fever Stop: 12/09/22 21:58 Amlodipine Besylate (Amlodipine Besylate 5 Mg Tab) [address] [facility] Stop: 12/10/22 08:59 Last Admin: 11/13/22 07:57 Dose: 10 mg Aspirin (Aspirin 81 Mg Ectab) [address] [facility] Stop: 12/10/22 16:59 Last Admin: 11/13/22 07:57 Dose: 81 mg Atorvastatin Calcium (Atorvastatin 20 Mg Tab) [address] [facility] Stop: 12/09/22 21:58 Last Admin: 11/12/22 20:17 Dose: 20 mg Cyanocobalamin (Cyanocobalamin 1000 Mcg/Ml Vial) 1,000 mcg IM DAILY@1200 [facility] Stop: 11/14/22 12:01 Last Admin: 11/13/22 07:57 Dose: 1,000 mcg Enoxaparin Sodium (Enoxaparin Inj 40 Mg/0.4 Ml Syr) 40 mg SQ Q24H [facility] Stop: 12/09/22 22:59 Last Admin: 11/12/22 22:36 Dose: 40 mg Ergocalciferol (Ergocalciferol 50,000 Units 1250 Mcg Cap) 50,000 units PO Q7D@0900 [facility] Stop: 12/11/22 13:59 Last Admin: 11/11/22 14:56 Dose: 50,000 units Escitalopram Oxalate (Escitalopram Oxalate 20 Mg Tab) [facility] Stop: 12/10/22 08:59 Last Admin: 11/13/22 07:57 Dose: 20 mg Folic Acid (Folic Acid 1 Mg Tab) [address] [facility] Stop: 12/13/22 08:59 Last Admin: 11/13/22 07:57 Dose: 1 mg Thiamine HCl 250 mg/ Sodium (Chloride) 52.5 mls @ 210 mls/hr [facility] Stop: 11/18/22 08:59 Last Infusion: 11/13/22 08:32 Dose: Infused Multivitamins (Multivitamin Tab) [address] [facility] Stop: 12/09/22 17:44 Last Admin: 11/13/22 07:57 Dose: 1 tab Ondansetron HCl (Ondansetron Inj 2 Mg/Ml 2 Ml Vial) 4 mg IV Q6H PRN PRN Reason: Nausea Stop: 12/09/22 21:58 Pantoprazole Sodium (Pantoprazole 40 Mg Tab) [facility] Stop: 12/10/22 06:29 Last Admin: 11/13/22 06:23 Dose: 40 mg Polyethylene Glycol (Polyethylene (Miralax) 17 Gm Pack) 17 gm PO DAILY PRN PRN Reason: Constipation Stop: 12/09/22 21:58 Potassium Chloride (Potassium Chloride Crtab 20 Meq Tabcr) 40 meq PO DAILY [facility] Stop: 12/13/22 10:29 Last Admin: 11/13/22 11:08 Dose: 40 meq Tamsulosin HCl (Tamsulosin Hcl 0.4 Mg Cap) 0.4 mg PO QAM [facility] Stop: 12/10/22 08:59 Last Admin: 11/13/22 07:57 Dose: 0.4 mg Topiramate (Topiramate 25 Mg Tab) 25 mg PO BID [facility] Stop: 12/09/22 21:58 Last Admin: 11/13/22 07:57 Dose: 25 mg Topiramate (Topiramate 50 Mg Tab) 50 mg PO BID [facility] Stop: 12/09/22 21:58 Last Admin: 11/13/22 07:58 Dose: 50 mg Trazodone HCl (Trazodone Hcl 50 Mg Tab) 50 mg PO [facility] Stop: 12/09/22 21:58 Last Admin: 11/12/22 20:21 Dose: 50 mg
[2022-11-13] MEDS: traZODone HCL 50 MG TAB PO SCH (20:29)
[2022-11-13] MEDS: ATORVASTATIN 20 MG TAB PO SCH (20:29)
[2022-11-13] MEDS: ENOXAPARIN INJ 40 MG/0.4 ML SYR SQ SCH (23:12)
[2022-11-14] MEDS: PANTOprazole 40 MG TAB PO SCH (06:25)
[2022-11-14 06:56] LABS: BUN Creatinine Ratio 11.8 (10-20); Calcium 8.9 mg/dl (8.6-10.3); Creatinine Clr Calc Pharmacy 80.7 ml/min; Est GFR (African American) 102.3 ml/min; Est GFR (Non-African American) 88.3 ml/min; Magnesium 1.7 mg/dl (1.7-2.4); Phosphorus 4.1 mg/dl (2.5-4.9); Potassium 3.4 mmol/L (3.5-5.1)
[2022-11-14] MEDS: amLODIPine BESYLATE 5 MG TAB PO SCH (08:32)
[2022-11-14] MEDS: ASPIRIN 81 MG ECTAB PO SCH (08:32)
[2022-11-14] MEDS: ESCITALOPRAM OXALATE 20 MG TAB PO SCH (08:32)
[2022-11-14] MEDS: MULTIVITAMIN TAB PO SCH (08:33)
[2022-11-14] MEDS: POTASSIUM CHLORIDE CRTAB 20 MEQ TABCR PO SCH (08:33)
[2022-11-14] MEDS: TOPIRAMATE 50 MG TAB PO SCH ×2 (08:33→19:51)
[2022-11-14] MEDS: TAMSULOSIN HCL 0.4 MG CAP PO SCH (08:33)
[2022-11-14] MEDS: FOLIC ACID 1 MG TAB PO SCH (08:33)
[2022-11-14] MEDS: TOPIRAMATE 25 MG TAB PO SCH ×2 (08:33→19:51)
[2022-11-14] MEDS: THIAMINE HCL 250 MG in SODIUM CHLORIDE 0.9% 50 ML IV SCH (09:42)
--- NOTE | 2022-11-14 12:02 | Hospitalist Progress Note ---
Date of Service November 14, 2022 Assessment & Plan (1) Ataxia: (2) Alcohol use disorder in remission: (3) Seizure disorder: (4) Anxiety and depression: (5) HTN (hypertension): (6) Vitamin D deficiency: Plan This is a 62-year-old male with PMH of hypertension, remote seizure disorder, significant history of alcohol abuse, anxiety and depression, GERD and other medical problems listed below who presents with acute ambulatory dysfunction and impaired cognition concerning for vitamin deficiency and related syndromes including Wernicke's encephalopathy. Brain MRI- No acute territorial infarct. No acute intracranial hemorrhage. No midline shift or mass effect. Cerebral volume loss, advanced for the patient's age, which may besecondary to the patient's history of alcoholism. CT head- No acute intracranial abnormality. Carotid doppler- No hemodynamically significant stenosis of the carotid arteries. Ataxia with ambulatory dysfunction, Impaired cognition Possible Wernicke's encephalopathy H/o alcohol abuse Recent admission to [facility] 10/30-11/03 for etoh withdrawal, notable ambulatory dysfunction and slowed cognition since discharge home Discharged home on Librium taper and naltrexone Last drink 10/29, etoh level normal on admission. No s/sx of alcohol withdrawal on admission Head CT without acute intracranial abnormality Concern for significant vitamin deficiency in setting of minimal appetite, h/o alcoholism and Topamax use Thiamine, B12, folate, MMA -B12 is normal at 713, folic acid is normal at 18.95, MMA WNL at 128. Whol vitamin B1 level is still pending Received IV folate, thiamine and B12 in the ED S/p iv thiamine 500 mg q24 hr x3 days, now on 250 mg daily x 5 days for suspected wernicke's encephalopathy Continue B12, folate daily Neuro recs noted Vit D deficiency- already on supplementation Seizure disorder- Remote h/o seizure 16 years ago. Continue Topamax Anxiety and depression - H/o grief from recent losses over past year, evaluated by psych at [facility] with recommendation for continued outpatient therapy. Continue SSRI - Reduced Trazodone to 50mg HS HTN- Continue amlodipine Hypokalemia- repleted, recheck in a.m. DVT Ppx: SQ lovenox Code status: FULL Dispo: On iv thiamine for Wernicke's. PT OT recommends rehab. Admission and Anticipated Discharge Date Admission Date: November 09, 2022 Subjective Patient was seen and examined at bedside. He continues to feel better. Denies no new issues. No fever, chills, chest pain, shortness of breath, nausea or vomiting. He worked with physical therapy yesterday who is recommending rehab Review of Systems Review of Systems: All systems reviewed & are unremarkable except as noted in Subjective Physical Exam Physical Exam: General: Lying comfortably in bed, not in distress, on room air HEENT: EOMI, LACY, MMM Chest: Clear breath sounds bilaterally, no wheezes or crackles CVS: Regular rate and rhythm, normal heart sounds, no murmur Abdomen: Soft, non tender, not distended, normal bowel sounds Neuro: Awake, alert, oriented, conversing well, non focal Extremities: No cyanosis, clubbing or edema Results & Data Results & Data Vital Signs (Past 12 Hours) Vital Signs Temp Pulse Resp BP Pulse Ox O2 Del Method 11/14/22 08:00 36.8 C 76 18 128/80 92 Room Air Laboratory Results BMP 11/14/22 05:44 Sodium 141 Potassium 3.4 L Chloride 110 H Carbon Dioxide 23 BUN 11 Creatinine 0.93 Glucose 84 Calcium 8.9 Medications Administered Current Inpatient Medications Acetaminophen (Acetaminophen 325 Mg Tab) 650 mg PO Q4H PRN PRN Reason: Pain or Fever Stop: 12/09/22 21:58 Amlodipine Besylate (A[facility]ipine Besylate 5 Mg Tab) [facility] Stop: 12/10/22 08:59 Last Admin: 11/14/22 08:32 Dose: 10 mg Aspirin (Aspirin 81 Mg Ectab) 81 mg PO QAM [facility] Stop: 12/10/22 16:59 Last Admin: 11/14/22 08:32 Dose: 81 mg Atorvastatin Calcium (Atorvastatin 20 Mg Tab) 20 mg PO [facility] Stop: 12/09/22 21:58 Last Admin: 11/13/22 20:29 Dose: 20 mg Cyanocobalamin (Cyanocobalamin 1000 Mcg/Ml Vial) 1,000 mcg IM DAILY@1200 [facility] Stop: 11/14/22 12:01 Last Admin: 11/13/22 07:57 Dose: 1,000 mcg Enoxaparin Sodium (Enoxaparin Inj 40 Mg/0.4 Ml Syr) 40 mg SQ Q24H [facility] Stop: 12/09/22 22:59 Last Admin: 11/13/22 23:12 Dose: 40 mg Ergocalciferol (Ergocalciferol 50,000 Units 1250 Mcg Cap) 50,000 units PO Q7D@0900 [facility] Stop: 12/11/22 13:59 Last Admin: 11/11/22 14:56 Dose: 50,000 units Escitalopram Oxalate (Escitalopram Oxalate 20 Mg Tab) 20 mg PO QAM [facility] Stop: 12/10/22 08:59 Last Admin: 11/14/22 08:32 Dose: 20 mg Folic Acid (Folic Acid 1 Mg Tab) 1 mg PO QAM [facility] Stop: 12/13/22 08:59 Last Admin: 11/14/22 08:33 Dose: 1 mg Thiamine HCl 250 mg/ Sodium (Chloride) 52.5 mls @ 210 mls/hr IV QAM [facility] Stop: 11/18/22 08:59 Last Infusion: 11/14/22 10:02 Dose: Infused Multivitamins (Multivitamin Tab) 1 tab PO QAM [facility] Stop: 12/09/22 17:44 Last Admin: 11/14/22 08:33 Dose: 1 tab Ondansetron HCl (Ondansetron Inj 2 Mg/Ml 2 Ml Vial) 4 mg IV Q6H PRN PRN Reason: Nausea Stop: 12/09/22 21:58 Pantoprazole Sodium (Pantoprazole 40 Mg Tab) 40 mg PO DAILYBB [facility] Stop: 12/10/22 06:29 Last Admin: 11/14/22 06:25 Dose: 40 mg Polyethylene Glycol (Polyethylene (Miralax) 17 Gm Pack) 17 gm PO DAILY PRN PRN Reason: Constipation Stop: 12/09/22 21:58 Potassium Chloride (Potassium Chloride Crtab 20 Meq Tabcr) 40 meq PO DAILY [facility] Stop: 12/13/22 10:29 Last Admin: 11/14/22 08:33 Dose: 40 meq Tamsulosin HCl (Tamsulosin Hcl 0.4 Mg Cap) 0.4 mg PO QAM [facility] Stop: 12/10/22 08:59 Last Admin: 11/14/22 08:33 Dose: 0.4 mg Topiramate (Topiramate 25 Mg Tab) 25 mg PO BID [facility] Stop: 12/09/22 21:58 Last Admin: 11/14/22 08:33 Dose: 25 mg Topiramate (Topiramate 50 Mg Tab) 50 mg PO BID [facility] Stop: 12/09/22 21:58 Last Admin: 11/14/22 08:33 Dose: 50 mg Trazodone HCl (Trazodone Hcl 50 Mg Tab) 50 mg PO [facility] Stop: 12/09/22 21:58 Last Admin: 11/13/22 20:29 Dose: 50 mg
[2022-11-14] MEDS: CYANOCOBALAMIN 1000 MCG/ML VIAL IM SCH (12:23)
[2022-11-14] MEDS: ATORVASTATIN 20 MG TAB PO SCH (19:50)
[2022-11-14] MEDS: traZODone HCL 50 MG TAB PO SCH (19:53)
[2022-11-14] MEDS: ENOXAPARIN INJ 40 MG/0.4 ML SYR SQ SCH (23:43)
[2022-11-15] MEDS: PANTOprazole 40 MG TAB PO SCH (06:31)
[2022-11-15 06:38] LABS: Hematocrit (blood only) 42.7 % (42.0-52.0); Hemoglobin 14.4 g/dl (14.0-18.0); Mean Corpuscular Hemoglobin 33.7 pg (25.0-34.0); Mean Corpuscular Hgb Conc 33.7 g/dL (32.0-36.0); Mean Platelet Volume 10.6 fL (9.4-12.4); Platelet Count 334 K/uL (130-400); RDW Coefficient of Variation 11.9 % (11.5-14.5); RDW Standard Deviation 42.7 fL (36.4-46.3); Red Blood Count 4.27 M/uL (4.70-6.10)
[2022-11-15 06:52] LABS: Est GFR (African American) 105.1 ml/min; Est GFR (Non-African American) 90.6 ml/min; Potassium 3.8 mmol/L (3.5-5.1)
[2022-11-15 06:53] LABS: BUN Creatinine Ratio 13.2 (10-20); Calcium 9.2 mg/dl (8.6-10.3); Creatinine Clr Calc Pharmacy 82.5 ml/min
[2022-11-15] MEDS: ASPIRIN 81 MG ECTAB PO SCH (08:12)
[2022-11-15] MEDS: amLODIPine BESYLATE 5 MG TAB PO SCH (08:12)
[2022-11-15] MEDS: POTASSIUM CHLORIDE CRTAB 20 MEQ TABCR PO SCH (08:12)
[2022-11-15] MEDS: ESCITALOPRAM OXALATE 20 MG TAB PO SCH (08:12)
[2022-11-15] MEDS: TAMSULOSIN HCL 0.4 MG CAP PO SCH (08:13)
[2022-11-15] MEDS: THIAMINE HCL 250 MG in SODIUM CHLORIDE 0.9% 50 ML IV SCH (08:13)
[2022-11-15] MEDS: MULTIVITAMIN TAB PO SCH (08:13)
[2022-11-15] MEDS: TOPIRAMATE 50 MG TAB PO SCH ×2 (08:13→20:08)
[2022-11-15] MEDS: FOLIC ACID 1 MG TAB PO SCH (08:13)
[2022-11-15] MEDS: TOPIRAMATE 25 MG TAB PO SCH ×2 (08:13→20:08)
[2022-11-15 14:38] LABS: 7-Aminoclonaz, Confirm NEGATIVE ng/mL (<25); Hydro-Alp Ur, GC/MS NEGATIVE ng/mL (<25); Hydroxyethylflurazepam, Conf NEGATIVE ng/mL (<50); Hydroxymidazolam Ur, GC/MS NEGATIVE ng/mL (<50); Hydroxytriazolam NEGATIVE ng/mL (<50); Lorazepam, Ur GC/MS NEGATIVE ng/mL (<50); MDA negative; MDEA negative; MDMA (Ecstasy) Urine, Confirm negative; Nordiazepam, Confirm 70 ng/mL (<50); Oxazepam Ur, GC/MS >2000 ng/mL (<50); Temazepam, Confirm NEGATIVE ng/mL (<50)
--- NOTE | 2022-11-15 16:34 | Hospitalist Progress Note ---
Date of Service November 15, 2022 Assessment & Plan (1) Ataxia: (2) Alcohol use disorder in remission: (3) Seizure disorder: (4) Anxiety and depression: (5) HTN (hypertension): (6) Vitamin D deficiency: Plan This is a 62-year-old male with PMH of hypertension, remote seizure disorder, significant history of alcohol abuse, anxiety and depression, GERD and other medical problems listed below who presents with acute ambulatory dysfunction and impaired cognition concerning for vitamin deficiency and related syndromes including Wernicke's encephalopathy. Ataxia with ambulatory dysfunction, Impaired cognition Possible Wernicke's encephalopathy H/o alcohol abuse Recent admission to [facility] 10/30-11/03 for etoh withdrawal, notable ambulatory dysfunction and slowed cognition since discharge home Discharged home on Librium taper and naltrexone Last drink 10/29, etoh level normal on admission. No s/sx of alcohol withdrawal on admission Head CT without acute intracranial abnormality Concern for significant vitamin deficiency in setting of minimal appetite, h/o alcoholism and Topamax use Thiamine, B12, folate, MMA -B12 is normal at 713, folic acid is normal at 18.95, MMA WNL at 128. Whol vitamin B1 level is still pending Received IV folate, thiamine and B12 in the ED S/p iv thiamine 500 mg q24 hr x3 days, now on 250 mg daily x 5 days for suspected wernicke's encephalopathy Continue B12, folate daily Clinically much improved and the confusion seems to be cleared Has had physical therapy and recommended rehab But had to have inpatient alcohol rehab as well Imaging studies: Brain MRI- No acute territorial infarct. No acute intracranial hemorrhage. No midline shift or mass effect. Cerebral volume loss, advanced for the patient's age, which may besecondary to the patient's history of alcoholism. CT head- No acute intracranial abnormality. Carotid doppler- No hemodynamically significant stenosis of the carotid arteries. Vit D deficiency- already on supplementation Seizure disorder- Remote h/o seizure 16 years ago. Continue Topamax Remains stable Anxiety and depression - H/o grief from recent losses over past year, evaluated by psych at [facility] with recommendation for continued outpatient therapy. Continue SSRI Reduced Trazodone to 50mg HS No acute anxiety and or delirium HTN- Continue amlodipine Hypokalemia- repleted, recheck in a.m. Corrected on 11/15/2022 DVT Ppx: SQ lovenox Code status: FULL Dispo: On iv thiamine for Wernicke's. PT OT recommends rehab. Admission and Anticipated Discharge Date Admission Date: November 09, 2022 Subjective 11/15/2022 The patient was seen and examined in medical floor He has been much improved since I saw him last time Has minimal withdrawal symptoms Has been going to the bathroom by himself without any problem Denies any palpitation, shortness of breath, abdominal pain, nausea and or vomiting Review of Systems Review of Systems: All systems reviewed and are unremarkable except as noted below Physical Exam Physical Exam: Lying in bed comfortably Constitutional: well developed, well nourished and + ill appearing Eyes: PERRL, conjunctivae normal, anicteric sclerae ENMT: external ear and nose normal, oropharynx normal Neck: trachea midline, no thyromegaly Respiratory: no respiratory distress Auscultation: lungs clear to auscultation bilaterally Cardiovascular: Rate/Rhythm: regular rate and regular rhythm; not tachycardic Heart Sounds: normal S1 and normal S2; no murmur Extremities: no edema Gastrointestinal (Abdomen): Inspection/Auscultation: normal bowel sounds; abdomen not distended Percussion/Palpation: abdomen soft; abdomen nontender Musculoskeletal: No acute arthritis involving any joint Neurologic: Alert, awake and oriented x3. Minimal tremors involving the outstretched hands. No focal neurodeficit Lymphatic: no cervical or axillary lymphadenopathy Results & Data Results & Data Vital Signs (Past 12 Hours) Vital Signs Temp Pulse Resp BP Pulse Ox O2 Del Method 11/15/22 07:45 Room Air 11/15/22 07:35 36.5 C 65 16 132/81 96 Room Air Laboratory Results Short CBC 11/15/22 Range/Units 05:56 WBC 7.00 (4.8-10.8) K/ul Hgb 14.4 (14.0-18.0) g/dl Hct 42.7 (42.0-52.0) % Plt Count 334 (130-400) K/uL BMP 11/15/22 05:56 Sodium 137 Potassium 3.8 Chloride 107 Carbon Dioxide 25 BUN 12 Creatinine 0.91 Glucose 87 Calcium 9.2 Medications Administered Current Inpatient Medications Acetaminophen (Acetaminophen 325 Mg Tab) 650 mg PO Q4H PRN PRN Reason: Pain or Fever Stop: 12/09/22 21:58 Amlodipine Besylate (Amlodipine Besylate 5 Mg Tab) 10 mg PO [facility] Stop: 12/10/22 08:59 Last Admin: 11/15/22 08:12 Dose: 10 mg Aspirin (Aspirin 81 Mg Ectab) [facility] Stop: 12/10/22 16:59 Last Admin: 11/15/22 08:12 Dose: 81 mg Atorvastatin Calcium (Atorvastatin 20 Mg Tab) 20 mg PO HS [facility] Stop: 12/09/22 21:58 Last Admin: 11/14/22 19:50 Dose: 20 mg Enoxaparin Sodium (Enoxaparin Inj 40 Mg/0.4 Ml Syr) 40 mg SQ Q24H [facility] Stop: 12/09/22 22:59 Last Admin: 11/14/22 23:43 Dose: 40 mg Ergocalciferol (Ergocalciferol 50,000 Units 1250 Mcg Cap) 50,000 units PO Q7D@0900 [facility] Stop: 12/11/22 13:59 Last Admin: 11/11/22 14:56 Dose: 50,000 units Escitalopram Oxalate (Escitalopram Oxalate 20 Mg Tab) 20 mg PO [facility] Stop: 12/10/22 08:59 Last Admin: 11/15/22 08:12 Dose: 20 mg Folic Acid (Folic Acid 1 Mg Tab) 1 mg PO [facility] Stop: 12/13/22 08:59 Last Admin: 11/15/22 08:13 Dose: 1 mg Thiamine HCl 250 mg/ Sodium (Chloride) 52.5 mls @ 210 mls/hr IV [facility] Stop: 11/18/22 08:59 Last Infusion: 11/15/22 08:30 Dose: Infused Multivitamins (Multivitamin Tab) 1 tab PO [facility] Stop: 12/09/22 17:44 Last Admin: 11/15/22 08:13 Dose: 1 tab Ondansetron HCl (Ondansetron Inj 2 Mg/Ml 2 Ml Vial) 4 mg IV Q6H PRN PRN Reason: Nausea Stop: 12/09/22 21:58 Pantoprazole Sodium (Pant[facility]ole 40 Mg Tab) [facility] Stop: 12/10/22 06:29 Last Admin: 11/15/22 06:31 Dose: 40 mg Polyethylene Glycol (Polyethylene (Miralax) 17 Gm Pack) 17 gm PO DAILY PRN PRN Reason: Constipation Stop: 12/09/22 21:58 Potassium Chloride (Potassium Chloride Crtab 20 Meq Tabcr) 40 meq PO DAILY [facility] Stop: 12/13/22 10:29 Last Admin: 11/15/22 08:12 Dose: 40 meq Tamsulosin HCl (Tamsulosin Hcl 0.4 Mg Cap) 0.4 mg PO QAM [facility] Stop: 12/10/22 08:59 Last Admin: 11/15/22 08:13 Dose: 0.4 mg Topiramate (Topiramate 25 Mg Tab) 25 mg PO BID [facility] Stop: 12/09/22 21:58 Last Admin: 11/15/22 08:13 Dose: 25 mg Topiramate (Topiramate 50 Mg Tab) 50 mg PO BID [facility] Stop: 12/09/22 21:58 Last Admin: 11/15/22 08:13 Dose: 50 mg Trazodone HCl (Trazodone Hcl 50 Mg Tab) 50 mg PO HS [facility] Stop: 12/09/22 21:58 Last Admin: 11/14/22 19:53 Dose: 50 mg
[2022-11-15] MEDS: ATORVASTATIN 20 MG TAB PO SCH (20:07)
[2022-11-15] MEDS: traZODone HCL 50 MG TAB PO SCH (20:11)
[2022-11-15] MEDS: ENOXAPARIN INJ 40 MG/0.4 ML SYR SQ SCH (23:12)
[2022-11-16] MEDS: PANTOprazole 40 MG TAB PO SCH (06:23)
[2022-11-16] MEDS: amLODIPine BESYLATE 5 MG TAB PO SCH (08:05)
[2022-11-16] MEDS: ASPIRIN 81 MG ECTAB PO SCH (08:05)
[2022-11-16] MEDS: FOLIC ACID 1 MG TAB PO SCH (08:05)
[2022-11-16] MEDS: ESCITALOPRAM OXALATE 20 MG TAB PO SCH (08:05)
[2022-11-16] MEDS: TOPIRAMATE 50 MG TAB PO SCH ×2 (08:06→21:08)
[2022-11-16] MEDS: TOPIRAMATE 25 MG TAB PO SCH ×2 (08:06→21:07)
[2022-11-16] MEDS: MULTIVITAMIN TAB PO SCH (08:06)
[2022-11-16] MEDS: POTASSIUM CHLORIDE CRTAB 20 MEQ TABCR PO SCH (08:06)
[2022-11-16] MEDS: TAMSULOSIN HCL 0.4 MG CAP PO SCH (08:06)
[2022-11-16] MEDS: THIAMINE HCL 250 MG in SODIUM CHLORIDE 0.9% 50 ML IV SCH (08:08)
--- NOTE | 2022-11-16 15:50 | Hospitalist Progress Note ---
Date of Service November 16, 2022 Assessment & Plan (1) Ataxia: (2) Alcohol use disorder in remission: (3) Seizure disorder: (4) Anxiety and depression: (5) HTN (hypertension): (6) Vitamin D deficiency: Plan This is a 62-year-old male with PMH of hypertension, remote seizure disorder, significant history of alcohol abuse, anxiety and depression, GERD and other medical problems listed below who presents with acute ambulatory dysfunction and impaired cognition concerning for vitamin deficiency and related syndromes including Wernicke's encephalopathy. Ataxia with ambulatory dysfunction, Impaired cognition Possible Wernicke's encephalopathy H/o alcohol abuse Recent admission to [facility] 10/30-11/03 for etoh withdrawal, notable ambulatory dysfunction and slowed cognition since discharge home Discharged home on Librium taper and naltrexone Last drink 10/29, etoh level normal on admission. No s/sx of alcohol withdrawal on admission Head CT without acute intracranial abnormality Concern for significant vitamin deficiency in setting of minimal appetite, h/o alcoholism and Topamax use Thiamine, B12, folate, MMA -B12 is normal at 713, folic acid is normal at 18.95, MMA WNL at 128. Whol vitamin B1 level is still pending Received IV folate, thiamine and B12 in the ED S/p iv thiamine 500 mg q24 hr x3 days, now on 250 mg daily x 5 days for suspected wernicke's encephalopathy Continue B12, folate daily Clinically much improved and the confusion seems to be cleared Has had physical therapy and recommended rehab Physical therapy reevaluation recommended home Discussed with the patient and the and they are in agreement to go home wit h therapy as an outpatient for alcoholism The patient was advised to see his primary care physician for possible naltrexone therapy for alcohol use The patient and the are in agreement Likely discharge tomorrow following the finishing of intravenous thiamine Imaging studies: Brain MRI- No acute territorial infarct. No acute intracranial hemorrhage. No midline shift or mass effect. Cerebral volume loss, advanced for the patient's age, which may besecondary to the patient's history of alcoholism. CT head- No acute intracranial abnormality. Carotid doppler- No hemodynamically significant stenosis of the carotid arteries. Vit D deficiency- already on supplementation Seizure disorder- Remote h/o seizure 16 years ago. Continue Topamax Remains stable Anxiety and depression - H/o grief from recent losses over past year, evaluated by psych at [facility] with recommendation for continued outpatient therapy. Continue SSRI Reduced Trazodone to 50mg HS No acute anxiety and or delirium No more anxiety and/or delirium HTN- Continue amlodipine Hypokalemia- repleted, recheck in a.m. Corrected on 11/15/2022 DVT Ppx: SQ lovenox Code status: FULL Dispo: On iv thiamine for Wernicke's. PT OT recommends rehab. Patient did not want to go to inpatient rehab for alcohol abuse Has had a long lengthy discussion with the family and the patient Admission and Anticipated Discharge Date Admission Date: November 09, 2022 Subjective 11/15/2022 The patient was seen and examined in medical floor He has been much improved since I saw him last time Has minimal withdrawal symptoms Has been going to the bathroom by himself without any problem Denies any palpitation, shortness of breath, abdominal pain, nausea and or vomiting 11/16/2022 The patient was seen and examined in medical floor He has been feeling much better and denies any symptoms of withdrawal There is no tremors, no palpitation and no more confusion He has had physical therapy and recommended home Discussed with the patient and he wants to go home rather than inpatient rehab Review of Systems Review of Systems: All systems reviewed and are unremarkable except as noted below Physical Exam Physical Exam: Lying in bed comfortably Constitutional: well developed, well nourished and + ill appearing Eyes: PERRL, conjunctivae normal, anicteric sclerae ENMT: external ear and nose normal, oropharynx normal Neck: trachea midline, no thyromegaly Respiratory: no respiratory distress Auscultation: lungs clear to auscultation bilaterally, + diminished lung sounds and + crackles (Minimal crackles at the bases) Cardiovascular: Rate/Rhythm: regular rate and regular rhythm; not tachycardic Heart Sounds: normal S1 and normal S2; no murmur Extremities: no edema Gastrointestinal (Abdomen): Inspection/Auscultation: normal bowel sounds; abdomen not distended Percussion/Palpation: abdomen soft; abdomen nontender Musculoskeletal: No acute arthritis involving any of the joint Neurologic: Alert, awake and oriented x3. No focal sensory and or motor deficit appreciated Psychiatric: A+Ox3, euthymic affect Lymphatic: no cervical or axillary lymphadenopathy Results & Data Results & Data Vital Signs (Past 12 Hours) Vital Signs Temp Pulse Resp BP BP Pulse Ox O2 Del Method 11/16/22 15:19 36.5 C 69 16 133/87 93 Room Air 11/16/22 08:00 Room Air 11/16/22 07:48 36.6 C 60 16 148/88 H 97 Room Air Medications Administered Current Inpatient Medications Acetaminophen (Acetaminophen 325 Mg Tab) 650 mg PO Q4H PRN PRN Reason: Pain or Fever Stop: 12/09/22 21:58 Amlodipine Besylate (Amlodipine Besylate 5 Mg Tab) [facility] [place] [facility] Stop: 12/10/22 08:59 Last Admin: 11/16/22 08:05 Dose: 10 mg Aspirin (Aspirin 81 Mg Ectab) [facility] [place] [facility] Stop: 12/10/22 16:59 Last Admin: 11/16/22 08:05 Dose: 81 mg Atorvastatin Calcium (Atorvastatin 20 Mg Tab) 20 mg PO HS [facility] Stop: 12/09/22 21:58 Last Admin: 11/15/22 20:07 Dose: 20 mg Enoxaparin Sodium (Enoxaparin Inj 40 Mg/0.4 Ml Syr) 40 mg SQ Q24H [facility] Stop: 12/09/22 22:59 Last Admin: 11/15/22 23:12 Dose: 40 mg Ergocalciferol (Ergocalciferol 50,000 Units 1250 Mcg Cap) 50,000 units PO Q7D@0900 [facility] Stop: 12/11/22 13:59 Last Admin: 11/11/22 14:56 Dose: 50,000 units Escitalopram Oxalate (Escitalopram Oxalate 20 Mg Tab) [facility] [place] Stop: 12/10/22 08:59 Last Admin: 11/16/22 08:05 Dose: 20 mg Folic Acid (Folic Acid 1 Mg Tab) [facility] [place] Stop: 12/13/22 08:59 Last Admin: 11/16/22 08:05 Dose: 1 mg Thiamine HCl 250 mg/ Sodium (Chloride) 52.5 mls @ 210 mls/hr IV QAM [facility] Stop: 11/18/22 08:59 Last Infusion: 11/16/22 08:30 Dose: Infused Multivitamins (Multivitamin Tab) [facility] [place] Stop: 12/09/22 17:44 Last Admin: 11/16/22 08:06 Dose: 1 tab Ondansetron HCl (Ondansetron Inj 2 Mg/Ml 2 Ml Vial) 4 mg IV Q6H PRN PRN Reason: Nausea Stop: 12/09/22 21:58 Pantoprazole Sodium (Pantoprazole 40 Mg Tab) 40 mg PO DAILYBB [facility] Stop: 12/10/22 06:29 Last Admin: 11/16/22 06:23 Dose: 40 mg Polyethylene Glycol (Polyethylene (Miralax) 17 Gm Pack) 17 gm PO DAILY PRN PRN Reason: Constipation Stop: 12/09/22 21:58 Potassium Chloride (Potassium Chloride Crtab 20 Meq Tabcr) 40 meq PO DAILY [facility] Stop: 12/13/22 10:29 Last Admin: 11/16/22 08:06 Dose: 40 meq Tamsulosin HCl (Tamsulosin Hcl 0.4 Mg Cap) 0.4 mg PO QAM [facility] Stop: 12/10/22 08:59 Last Admin: 11/16/22 08:06 Dose: 0.4 mg Topiramate (Topiramate 25 Mg Tab) 25 mg PO BID [facility] Stop: 12/09/22 21:58 Last Admin: 11/16/22 08:06 Dose: 25 mg Topiramate (Topiramate 50 Mg Tab) 50 mg PO BID [facility] Stop: 12/09/22 21:58 Last Admin: 11/16/22 08:06 Dose: 50 mg Trazodone HCl (Trazodone Hcl 50 Mg Tab) 50 mg PO HS [facility] Stop: 12/09/22 21:58 Last Admin: 11/15/22 20:11 Dose: 50 mg
[2022-11-16] MEDS: ATORVASTATIN 20 MG TAB PO SCH (21:07)
[2022-11-16] MEDS: traZODone HCL 50 MG TAB PO SCH (21:09)
[2022-11-16] MEDS: ENOXAPARIN INJ 40 MG/0.4 ML SYR SQ SCH (22:52)
[2022-11-17] MEDS: PANTOprazole 40 MG TAB PO SCH (06:31)
[2022-11-17 07:28] LABS: Basophils # (auto) 0.17 K/uL (0-0.2); Basophils % (auto) 2.3 %; Eosinophils # (auto) 0.24 K/uL (0-0.50); Eosinophils % (auto) 3.2 %; Hematocrit (blood only) 41.4 % (42.0-52.0); Hemoglobin 14.3 g/dl (14.0-18.0); Immature Granulocytes # (auto) 0.09 K/uL (0.01-0.20); Immature Granulocytes % (auto) 1.2 %; Lymphocytes # (auto) 1.65 K/uL (1.2-3.4); Lymphocytes % (auto) 21.9 %; Mean Corpuscular Hgb Conc 34.5 g/dL (32.0-36.0); Mean Corpuscular Volume 98.6 fL (80.0-100.0); Mean Platelet Volume 10.5 fL (9.4-12.4); Monocytes # (auto) 0.92 K/uL (0.11-0.59); Monocytes % (auto) 12.2 %; Neutrophils # (auto) 4.46 K/uL (1.40-6.50); Neutrophils % (auto) 59.2 %; Platelet Count 366 K/uL (130-400); RDW Coefficient of Variation 11.9 % (11.5-14.5); RDW Standard Deviation 43.3 fL (36.4-46.3); White Blood Count 7.53 K/ul (4.8-10.8)
[2022-11-17 08:02] LABS: Albumin Globulin Ratio 1.3 (0.9-2); Albumin Level 3.7 gm/dl (3.4-5.0); BUN Creatinine Ratio 20.9 (10-20); Bilirubin,Total 0.4 mg/dl (0.2-1.0); Calcium 9.3 mg/dl (8.6-10.3); Creatinine Clr Calc Pharmacy 82.5 ml/min; Est GFR (African American) 105.1 ml/min; Est GFR (Non-African American) 90.6 ml/min; Globulin 2.8 gm/dl (2.5-4.0); Magnesium 1.8 mg/dl (1.7-2.4); Phosphorus 4.1 mg/dl (2.5-4.9); Total Protein 6.5 gm/dl (6.0-8.3)
[2022-11-17] MEDS: THIAMINE HCL 250 MG in SODIUM CHLORIDE 0.9% 50 ML IV SCH (08:04)
[2022-11-17] MEDS: ASPIRIN 81 MG ECTAB PO SCH (08:04)
[2022-11-17] MEDS: amLODIPine BESYLATE 5 MG TAB PO SCH (08:04)
[2022-11-17] MEDS: POTASSIUM CHLORIDE CRTAB 20 MEQ TABCR PO SCH (08:04)
[2022-11-17] MEDS: TAMSULOSIN HCL 0.4 MG CAP PO SCH (08:05)
[2022-11-17] MEDS: TOPIRAMATE 25 MG TAB PO SCH (08:05)
[2022-11-17] MEDS: FOLIC ACID 1 MG TAB PO SCH (08:05)
[2022-11-17] MEDS: ESCITALOPRAM OXALATE 20 MG TAB PO SCH (08:05)
[2022-11-17] MEDS: MULTIVITAMIN TAB PO SCH (08:05)
[2022-11-17] MEDS: TOPIRAMATE 50 MG TAB PO SCH (08:05)
--- NOTE | 2022-11-17 12:33 | Hospitalist Progress Note ---
Date of Service November 17, 2022 Assessment & Plan (1) Ataxia: (2) Alcohol use disorder in remission: (3) Seizure disorder: (4) Anxiety and depression: (5) HTN (hypertension): (6) Vitamin D deficiency: Plan This is a 62-year-old male with PMH of hypertension, remote seizure disorder, significant history of alcohol abuse, anxiety and depression, GERD and other medical problems listed below who presents with acute ambulatory dysfunction and impaired cognition concerning for vitamin deficiency and related syndromes including Wernicke's encephalopathy. Ataxia with ambulatory dysfunction, Impaired cognition Possible Wernicke's encephalopathy H/o alcohol abuse Recent admission to [facility] 10/30-11/03 for etoh withdrawal, notable ambulatory dysfunction and slowed cognition since discharge home Discharged home on Librium taper and naltrexone Last drink 10/29, etoh level normal on admission. No s/sx of alcohol withdrawal on admission Head CT without acute intracranial abnormality Concern for significant vitamin deficiency in setting of minimal appetite, h/o alcoholism and Topamax use Thiamine, B12, folate, MMA -B12 is normal at 713, folic acid is normal at 18.95, MMA WNL at 128. Whol vitamin B1 level is still pending Received IV folate, thiamine and B12 in the ED S/p iv thiamine 500 mg q24 hr x3 days, now on 250 mg daily x 5 days for suspected wernicke's encephalopathy Continue B12, folate daily Clinically much improved and the confusion seems to be cleared Has had physical therapy and recommended rehab Physical therapy reevaluation recommended home Discussed with the patient and the and they are in agreement to go home wit h therapy as an outpatient for alcoholism The patient was advised to see his primary care physician for possible naltrexone therapy for alcohol use The patient and the are in agreement Remains medically stable with normal electrolytes and lab works Will be discharged home this afternoon Strongly advised to abstain from alcohol and have follow-up with alcohol Anonymous group Imaging studies: Brain MRI- No acute territorial infarct. No acute intracranial hemorrhage. No midline shift or mass effect. Cerebral volume loss, advanced for the patient's age, which may besecondary to the patient's history of alcoholism. CT head- No acute intracranial abnormality. Carotid doppler- No hemodynamically significant stenosis of the carotid arteries. Vit D deficiency- already on supplementation Seizure disorder- Remote h/o seizure 16 years ago. Continue Topamax Remains stable Anxiety and depression - H/o grief from recent losses over past year, evaluated by psych at [facility] with recommendation for continued outpatient therapy. Continue SSRI Reduced Trazodone to 50mg HS No acute anxiety and or delirium No more anxiety and/or delirium HTN- Continue amlodipine Hypokalemia- repleted, recheck in a.m. Corrected on 11/15/2022 DVT Ppx: SQ lovenox Code status: FULL Dispo: On iv thiamine for Wernicke's. PT OT recommends rehab. Patient did not want to go to inpatient rehab for alcohol abuse Has had a long lengthy discussion with the family and the patient Discharged home this afternoon Admission and Anticipated Discharge Date Admission Date: November 09, 2022 Subjective 11/15/2022 The patient was seen and examined in medical floor He has been much improved since I saw him last time Has minimal withdrawal symptoms Has been going to the bathroom by himself without any problem Denies any palpitation, shortness of breath, abdominal pain, nausea and or vomiting 11/16/2022 The patient was seen and examined in medical floor He has been feeling much better and denies any symptoms of withdrawal There is no tremors, no palpitation and no more confusion He has had physical therapy and recommended home Discussed with the patient and he wants to go home rather than inpatient rehab 11/17/2022 The patient was seen and examined in medical floor He has been stable and does not have any significant symptoms Does not have any withdrawal symptoms but remains generally weak Has had physical therapy and recommended home The patient does not want to go to inpatient rehab and this was discussed in detail with the family members as well Review of Systems Review of Systems: All systems reviewed and are unremarkable except as noted below Physical Exam Physical Exam: Lying in bed comfortably Constitutional: well developed, well nourished and + ill appearing Eyes: PERRL, conjunctivae normal, anicteric sclerae ENMT: external ear and nose normal, oropharynx normal Neck: trachea midline, no thyromegaly Respiratory: no respiratory distress Auscultation: lungs clear to auscultation bilaterally, + diminished lung sounds and + crackles (Minimal crackles at the bases) Cardiovascular: Rate/Rhythm: regular rate and regular rhythm; not tachycardic Heart Sounds: normal S1 and normal S2; no murmur Extremities: no edema Gastrointestinal (Abdomen): Inspection/Auscultation: normal bowel sounds; abdomen not distended Percussion/Palpation: abdomen soft; abdomen nontender Musculoskeletal: No acute arthritis involving any joint Neurologic: normal touch/pain/proprioception and moves all extremities; no focal motor deficits and not confused Did not show any tremors involving the outstretched hands Psychiatric: A+Ox3, euthymic affect Lymphatic: no cervical or axillary lymphadenopathy Results & Data Results & Data Vital Signs (Past 12 Hours) Vital Signs Temp Pulse Resp BP Pulse Ox O2 Del Method 11/17/22 07:55 Room Air 11/17/22 07:26 36.7 C 78 18 109/73 99 Room Air Laboratory Results Short CBC 11/17/22 Range/Units 07:05 WBC 7.53 (4.8-10.8) K/ul Hgb 14.3 (14.0-18.0) g/dl Hct 41.4 L (42.0-52.0) % Plt Count 366 (130-400) K/uL BMP 11/17/22 07:05 Sodium 138 Potassium 4.0 Chloride 107 Carbon Dioxide 25 BUN 19 Creatinine 0.91 Glucose 88 Calcium 9.3 Liver Function 11/17/22 Range/Units 07:05 Total Bilirubin 0.4 (0.2-1.0) mg/dl AST 20 (13-39) U/L ALT 20 (7-52) U/L Alkaline Phosphatase 50 (34-104) U/L Albumin 3.7 (3.4-5.0) gm/dl Medications Administered Current Inpatient Medications Acetaminophen (Acetaminophen 325 Mg Tab) 650 mg PO Q4H PRN PRN Reason: Pain or Fever Stop: 12/09/22 21:58 Amlodipine Besylate (Amlodipine Besylate 5 Mg Tab) 10 mg PO [facility] Stop: 12/10/22 08:59 Last Admin: 11/17/22 08:04 Dose: 10 mg Aspirin (Aspirin 81 Mg Ectab) [facility] Stop: 12/10/22 16:59 Last Admin: 11/17/22 08:04 Dose: 81 mg Atorvastatin Calcium (Atorvastatin 20 Mg Tab) 20 mg PO [facility] Stop: 12/09/22 21:58 Last Admin: 11/16/22 21:07 Dose: 20 mg Enoxaparin Sodium (Enoxaparin Inj 40 Mg/0.4 Ml Syr) 40 mg SQ Q24H [facility] Stop: 12/09/22 22:59 Last Admin: 11/16/22 22:52 Dose: 40 mg Ergocalciferol (Ergocalciferol 50,000 Units 1250 Mcg Cap) 50,000 units PO Q7D@0900 [facility] Stop: 12/11/22 13:59 Last Admin: 11/11/22 14:56 Dose: 50,000 units Escitalopram Oxalate (Escitalopram Oxalate 20 Mg Tab) 20 mg PO QAM [facility] Stop: 12/10/22 08:59 Last Admin: 11/17/22 08:05 Dose: 20 mg Folic Acid (Folic Acid 1 Mg Tab) 1 mg PO QAM [facility] Stop: 12/13/22 08:59 Last Admin: 11/17/22 08:05 Dose: 1 mg Thiamine HCl 250 mg/ Sodium (Chloride) 52.5 mls @ 210 mls/hr IV QAM [facility] Stop: 11/18/22 08:59 Last Infusion: 11/17/22 08:25 Dose: Infused Multivitamins (Multivitamin Tab) 1 tab PO QAM [facility] Stop: 12/09/22 17:44 Last Admin: 11/17/22 08:05 Dose: 1 tab Ondansetron HCl (Ondansetron Inj 2 Mg/Ml 2 Ml Vial) 4 mg IV Q6H PRN PRN Reason: Nausea Stop: 12/09/22 21:58 Pantoprazole Sodium (Pantoprazole 40 Mg Tab) 40 mg PO DAILYBB [facility] Stop: 12/10/22 06:29 Last Admin: 11/17/22 06:31 Dose: 40 mg Polyethylene Glycol (Polyethylene (Miralax) 17 Gm Pack) 17 gm PO DAILY PRN PRN Reason: Constipation Stop: 12/09/22 21:58 Potassium Chloride (Potassium Chloride Crtab 20 Meq Tabcr) 40 meq PO DAILY [facility] Stop: 12/13/22 10:29 Last Admin: 11/17/22 08:04 Dose: 40 meq Tamsulosin HCl (Tamsulosin Hcl 0.4 Mg Cap) 0.4 mg PO QAM [facility] Stop: 12/10/22 08:59 Last Admin: 11/17/22 08:05 Dose: 0.4 mg Topiramate (Topiramate 25 Mg Tab) 25 mg PO BID [facility] Stop: 12/09/22 21:58 Last Admin: 11/17/22 08:05 Dose: 25 mg Topiramate (Topiramate 50 Mg Tab) 50 mg PO BID [facility] Stop: 12/09/22 21:58 Last Admin: 11/17/22 08:05 Dose: 50 mg Trazodone HCl (Trazodone Hcl 50 Mg Tab) 50 mg PO HS [facility] Stop: 12/09/22 21:58 Last Admin: 11/16/22 21:09 Dose: 50 mg
--- NOTE | 2022-11-18 08:46 | Discharge Summary ---
Date of Service November 17, 2022 Admission HPI Per Admitting Provider This is a 62-year-old male with PMH of hypertension, remote seizure disorder, significant history of alcohol abuse, anxiety and depression, GERD and other medical problems listed below who presents with acute memory changes and ambulatory dysfunction. Patient was recently admitted at [facility] from 10/30 - 11/03 for alcohol detox brought in by his . Also underwent stroke evaluation which was negative due to weakness during admission. Patient was discharged on Librium taper and naltrexone 50 mg daily as recommended from psychiatry consult during admission for depression related to alcohol use. Last drink was October 29. Previously to that drank 5-6 beers/night for years. Since discharge home, patient has been sleeping more, up to 20 hours a day and has seem increasingly more confused and unsteady. provided videos of patient walking 6 days ago with slight shuffling but steady and then showed video from earlier today of him scooting on the floor due to weakness and inability to fully stand as well as a slowed, unsteady gait, holding onto furniture. Examples of discoordination and confusion provided by include having difficulty operating TV remote and had it upside down and searching for his wallet and did not know it was in the other hand. Reportedly always has been a poor eater and recently started him on Gatorade and Ensure but has been on Topamax 75mg BID for years due to history of seizure 16 years ago. Urinating less frequently and reportedly dark, foul smelling. 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 Reportedly A&Ox3 without any cognitive slowing previously. Last drink was October 29. No fever, chills, lightheadedness, CP, SOB, N/V, abdominal pain, dysuria, diarrhea or constipation. Admission Exam Per Admitting Provider Physical exam he is alert and oriented but slow to respond. He exhibits no signs of withdrawal including no tremors or anxiousness. Tongue has a geographic appearance to it with patches of white and smooth red with possible glossitis. No evidence of dermatitis or angular cheilitis is noted. His skin is warm and dry with no evidence of diaphoresis. Extraocular muscles intact throughout with no evidence of nystagmus. Sensation is intact throughout and strength is 5 out of 5 throughout all limbs. I can easily take his arms and legs through a passive range of motion without any evidence of rigidity or obstacle. DTRs in the knees bilaterally are 3/4. Sensation intact. [id number] is intact. He answers questions correctly. Cardiac exam reveals S1-S2 heard with no murmurs gallops or rubs. There is a regular rate and rhythm auscultated. Pulmonary auscultation is clear throughout. Abdomen is soft nontender nondistended. Principal Diagnosis Ataxia with ambulatory dysfunction-improved, possible Warnicke's encephalopathy, alcohol abuse, seizure disorder, anxiety and depression Discharge Exam Lying in bed comfortably Constitutional well developed, well nourished and + ill appearing Eyes PERRL, conjunctivae normal, anicteric sclerae ENMT external ear and nose normal, oropharynx normal Neck trachea midline, no thyromegaly Respiratory no respiratory distress Auscultation: lungs clear to auscultation bilaterally, + diminished lung sounds and + crackles (Minimal crackles at the bases) Cardiovascular Rate/Rhythm: regular rate and regular rhythm; not tachycardic Heart Sounds: normal S1 and normal S2; no murmur Extremities: no edema Gastrointestinal (Abdomen) Inspection/Auscultation: normal bowel sounds; abdomen not distended Percussion/Palpation: abdomen soft; abdomen nontender Neurologic normal touch/pain/proprioception and moves all extremities; no focal motor deficits and not confused Psychiatric A+Ox3, euthymic affect Lymphatic no cervical or axillary lymphadenopathy Discharge Data Allergies Allergy/AdvReac Type Severity Reaction Status Date / Time bee venom protein (honey bee) Allergy Severe Anaphylaxis--CARRIES Verified 11/09/22 18:26 AN EPIPEN Consultations 11/09/22 20:39 Consult Neurology Routine Ordered Studies 11/09/22 15:14 CT head/brain wo con Stat US venous duplex leg [US venous doppler LE BI] Stat 11/09/22 19:15 MR brain wo/w con Urgent 11/09/22 19:55 US carotid doppler BI Urgent Hospital Course (1) Ataxia: (2) Alcohol use disorder in remission: (3) Seizure disorder: (4) Anxiety and depression: (5) HTN (hypertension): (6) Vitamin D deficiency: Plan This is a 62-year-old male with PMH of hypertension, remote seizure disorder, significant history of alcohol abuse, anxiety and depression, GERD and other medical problems listed below who presents with acute ambulatory dysfunction and impaired cognition concerning for vitamin deficiency and related syndromes including Wernicke's encephalopathy. Ataxia with ambulatory dysfunction, Impaired cognition Possible Wernicke's encephalopathy H/o alcohol abuse Recent admission to [facility] 10/30-11/03 for etoh withdrawal, notable ambulatory dysfunction and slowed cognition since discharge home Discharged home on Librium taper and naltrexone Last drink 10/29, etoh level normal on admission. No s/sx of alcohol withdrawal on admission Head CT without acute intracranial abnormality Concern for significant vitamin deficiency in setting of minimal appetite, h/o alcoholism and Topamax use Thiamine, B12, folate, MMA -B12 is normal at 713, folic acid is normal at 18.95, MMA WNL at 128. Whol vitamin B1 level is still pending Received IV folate, thiamine and B12 in the ED S/p iv thiamine 500 mg q24 hr x3 days, now on 250 mg daily x 5 days for suspected wernicke's encephalopathy Continue B12, folate daily Clinically much improved and the confusion seems to be cleared Has had physical therapy and recommended rehab Physical therapy reevaluation recommended home Discussed with the patient and the and they are in agreement to go home with therapy as an outpatient for alcoholism The patient was advised to see his primary care physician for possible naltrexone therapy for alcohol use The patient and the are in agreement Remains medically stable with normal electrolytes and lab works Will be discharged home this afternoon Strongly advised to abstain from alcohol and have follow-up with alcohol Anonymous group Imaging studies: Brain MRI- No acute territorial infarct. No acute intracranial hemorrhage. No midline shift or mass effect. Cerebral volume loss, advanced for the patient's age, which may besecondary to the patient's history of alcoholism. CT head- No acute intracranial abnormality. Carotid doppler- No hemodynamically significant stenosis of the carotid arteries. Vit D deficiency- already on supplementation Seizure disorder- Remote h/o seizure 16 years ago. Continue Topamax Remains stable Anxiety and depression - H/o grief from recent losses over past year, evaluated by psych at [facility] with recommendation for continued outpatient therapy. Continue SSRI Reduced Trazodone to 50mg HS No acute anxiety and or delirium No more anxiety and/or delirium HTN- Continue amlodipine Hypokalemia- repleted, recheck in a.m. Corrected on 11/15/2022 DVT Ppx: SQ lovenox Code status: FULL Dispo: On iv thiamine for Wernicke's. PT OT recommends rehab. Patient did not want to go to inpatient rehab for alcohol abuse Has had a long lengthy discussion with the family and the patient Discharged home this afternoon Total Time Total Time Spent Total Time Spent (In Minutes): 45 minutes Discharge Plan Discharge Items Patient Disposition: Home - Home Health Services Reason For Visit: ACUTE MEMORY CHANGE, ATAXIA, CONCERN FOR WERNICKES Discharge Diagnosis: Ataxia with ambulatory dysfunction-improved, possible Warnicke's encephalopathy, alcohol abuse, seizure disorder, anxiety and depression Condition on Discharge: Fair Activity: Resume your previous activity Non-emergency contact: Primary Care Provider Call non-emergency contact if: you have any medication questions and your symptoms worsen Follow-up/Referrals: Zay Huizar PA-C [Primary Care Provider] - (Date & Time 11/20/2022 12:20 PM Provider Zay Huizar PA-C Department [facility] ) Diet: Heart Healthy Diet Texture: Easy to Chew Addtl Attending Provider Instructions: Please take precautions to avoid falls Take your medications as advised and keep appointments with your healthcare prov iders Strongly advised to abstain from alcohol and discussed with PCP for possible preventive medications like Naltrexone Please have regular follow-up with alcohol Anonymous group Pending Studies at Discharge: No Stand-Alone Forms: [employer], Smoking Cessation Medications and DC Order Prescriptions: New aspirin 81 mg Tablet,Delayed Release (Dr/Ec) 81 mg PO QAM 30 Days Qty: 30 0RF folic acid 1 mg Tablet 1 mg PO QAM 30 Days Qty: 30 0RF ergocalciferol (vitamin D2) 1,250 mcg (50,000 unit) Capsule 50,000 unit PO Q7D@0900 30 Days Qty: 4 0RF thiamine HCl (vitamin B1) 100 mg tablet 100 mg PO DAILY Qty: 30 0RF Continued atorvastatin 20 mg tablet 20 mg PO HS topiramate 25 mg tablet 25 mg PO BID Rx Instructions: TOTAL DOSE 75 MG--TAKES WITH 50 MG TAB. tamsulosin 0.4 mg capsule 0.4 mg PO QAM trazodone 100 mg tablet 100 mg PO HS amlodipine 10 mg tablet 10 mg PO QAM omeprazole 20 mg capsule,delayed release(DR/EC) 20 mg PO DAILYBB escitalopram oxalate 20 mg tablet 20 mg PO QAM topiramate 50 mg tablet 50 mg PO BID Rx Instructions: TOTAL DOSE 75 MG--TAKES WITH 25 MG TAB. epinephrine [EpiPen] 0.3 mg/0.3 mL Auto-Injector 0.3 mg IM DIRECTED PRN (Reason: Allergic Reaction) multivitamin Tablet 1 tab PO DAILY Discontinued naltrexone 50 mg tablet 50 mg PO QAM chlordiazepoxide HCl 25 mg capsule 25 mg PO TID Discharge Orders: Discharge Order (Routine); Ordered 11/17/22 Ordered By: Chepe Cedeno/Other Patient Handouts: Vitamin D, Vitamin and Mineral Supplements Admission Data Admit Date/Time: 11/09/22 18:35 Attending Provider: Chepe Varghese Admit Provider: Maylin Whitten Primary Care Provider: Zay Huizar Other Providers: Maylin Whitten ; [facility] ; Kalin Hadley ; [place] Other Interventions: Discharge Summary Assessment (RN) Last Done: 11/17/22 13:03
== END 2022-11-17 14:37 | disposition home health service (06) | DRG 641 ==
LOC: ED 14:46 → 2S 18:35 → SUATTDRO 18:35 → 2S 20:37 → 3N 11-13 23:22